=== PATIENT | female | born 2000 | race Caucasian/White ===

== ENCOUNTER 2020-09-04 13:39 | Day surgery (SDC) | payer OTHER ==
[2020-09-04] MEDS ORDERED: Sodium Chloride 0.9% 2.5 ML Syringe FLUSH PRN ×2 (13:59→18:23)
--- NOTE | 2020-09-04 14:02 | EDM.PDOC ---
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 Onset was 2 AM. It was immediately following sexual intercourse. Since then the pain is continued but is gradually gotten a little better. It is associated with nausea but not with fever or change in bowel or bladder habits. She has no vaginal discharge. Her last menstrual period was probably a little more than a month ago and she thinks is probably late but she is not sure. History of present illness: [] Review of systems: As per history of present illness and below otherwise all systems reviewed and negative. Past medical history: As per history of present illness and as reviewed below otherwise noncontributory. Surgical history: As per history of present illness and as reviewed below otherwise noncontributory. Social history: No reported history of drug or alcohol abuse. Family history: As per history of present illness and as reviewed below otherwise noncontributory. Physical exam: Constitutional - well developed, well-nourished and in no acute distress HEENT - normocephalic, no evidence of trauma - external nose and mouth normal - no mass in neck and no JVD - mucosae moist EYES - full EOM, PERRL, no icterus - no evidence of inflammation, injection, or drainage Respiratory - no respiratory distress, equal bilateral expansion, lungs clear to auscultation and no abnormal lung sounds Cardiovascular - Regular Rhythm with S1 and S2 appreciated and no murmur, gallop or rub. GI - abdomen soft without distension or organomegaly - normal bowel sounds - no guard or rebound BUT tender in the hypogastrium on both sides and in the midline and suprapubic area. -exams were done with consent with inside barrel lathe operator, Neena Rogel, at the bedside. Yellow discharge is present in the external genitalia otherwise external genitalia is negative for any rashes lesions or other abnormalities. Yellow discharge is noted in the vaginal vault and consistent with discharge from the cervical os. Cervical os is erythematous but consistent in in color without any speckling. Moderate cervical motion tenderness is present with chandelier sign. No masses or tenderness appreciated in bilateral adnexa. IUD strings are present upon examination of the cervix. Musculoskeletal no gross deformity of long bones or joints - no tenderness, swelling or edema Neurologic - Alert and oriented times four - CN II-XII grossly intact - motor sensory and coordination symmetrically normal Psychiatric - appropriate mood and affect with normal thought content Hematologic - No petechiae or purpura - mucosa appropriate color and sclera not pale - normal nail bed color and refill Integument - no rash or evidence of trauma - normal turgor Diagnostics: [Gonorrhea, chlamydia, trichomonas, transvaginal ultrasound, speculum exam, bimanual exam] Therapeutics: [Normal saline, ceftriaxone IV, Toradol] Impression: [] Plan: [] Definitive disposition and diagnosis as appropriate pending reevaluation and review of above. Abdomen Pain Score (Numeric/FACES): 8 - Related Data Allergies Allergy/AdvReac Type Severity Reaction Status Date / Time No Known Allergies Allergy Verified 09/04/20 14:05 Home Meds: Home Meds Doxycycline [Vibramycin] 100 mg PO BID 10 Days #20 tab 09/04/20 [Rx] Past Medical History - Past Health History Medical/Surgical History: Denies Medical/Surgical History ED ROS GENERAL - Review of Systems Review Of Systems: Comprehensive ROS is negative, except as noted in HPI. ED EXAM, GENERAL - Physical Exam Exam: See Below Free Text/Narrative:: My physical exam is in the HPI Course - Vital Signs Text/Narrative:: 1817 hrs. with the patient and felt that torsion cannot be ruled out without taken the patient to the operating room. Arrangements being made for same. Last Recorded V/S: 1631 hrs. the case was discussed with radiology who called to say she had no flow to the right ovary and a small cyst. There was fluid around the right ovary. Discussed the case with Dr. Jiménez to see the patient. She is n.p.o. since last night with onset of pain at 2 AM. Departure - Departure Time of Disposition: 18:18 Disposition: Still A Patient 30 Condition: Good Clinical Impression: Ovarian cyst, Torsion of right ovary - Discharge Information <Alycia Jiménez - Last Filed: 09/04/20 20:31> ED HPI GENERAL MEDICAL PROBLEM - History of Present Illness INITIAL COMMENTS - FREE TEXT/NARRATIVE: HPI by Dr Dhaliwal , See previous Document for H & P Course - Vital Signs Last Recorded V/S: Last Vital Signs Temp 36.8 C 09/04/20 20:24 Pulse 90 09/04/20 20:24 Resp 12 09/04/20 20:24 BP 144/96 H 09/04/20 20:24 Pulse Ox 100 09/04/20 20:24 - Orders/Labs/Meds Orders: Active Orders 24 hr Category Date Time Status Admission Status [Patient Status] [ADT] Stat ADT 09/04/20 18:16 Active Patient Status [ADT] Routine ADT 09/04/20 18:23 Active Consult to Physician [CONS] Stat Cons 09/04/20 17:30 Active CHLAMYDIA AND GONORRHEA BY TMA Stat Lab 09/04/20 16:00 Received Sodium Chloride 0.9% [Normal Saline] Med 09/04/20 18:23 Active 10 ml IV ASDIRECTED PRN Sodium Chloride 0.9% [Saline Flush] Med 09/04/20 18:23 Active 10 ml FLUSH ASDIRECTED PRN Sodium Chloride 0.9% [Saline Flush] Med 09/04/20 18:23 Active 2.5 ml FLUSH ASDIRECTED PRN fentaNYL [Sublimaze] Med 09/04/20 19:59 Active 50 mcg IVPUSH Q5M PRN Peripheral IV Insertion Adult [OM.PC] Urgent Oth 09/04/20 18:23 Ordered Saline Lock Insert [OM.PC] Stat Oth 09/04/20 13:59 Ordered Sequential Compression Device [OM.PC] Per Unit Routine Oth 09/04/20 18:23 Ordered Labs: Laboratory Tests 09/04/20 09/04/20 09/04/20 Range/Units 14:10 14:20 14:20 WBC (4.0-11.0) K/uL RBC (4.30-5.90) M/uL Hgb (12.0-16.0) g/dL Hct (36.0-46.0) % MCV (80.0-98.0) fL MCH (27.0-32.0) pg MCHC (31.0-37.0) g/dL RDW Std Deviation (28.0-62.0) fl RDW Coeff of Shalonda (11.0-15.0) % Plt Count (150-400) K/uL MPV (7.40-12.00) fL Neut % (Auto) (48.0-80.0) % Lymph % (Auto) (16.0-40.0) % [place] % (Auto) (0.0-15.0) % Eos % (Auto) (0.0-7.0) % Baso % (Auto) (0.0-1.5) % Neut # (Auto) (1.4-5.7) K/uL Lymph # (Auto) (0.6-2.4) K/uL [place] # (Auto) (0.0-0.8) K/uL Eos # (Auto) (0.0-0.7) K/uL Baso # (Auto) (0.0-0.1) K/uL Nucleated RBC % /100WBC Nucleated RBCs # K/uL Sodium (136-145) mmol/L Potassium (3.5-5.1) mmol/L Chloride (98-107) mmol/L Carbon Dioxide (21.0-32.0) mmol/L BUN (7.0-18.0) mg/dL Creatinine (0.6-1.0) mg/dL Est Cr Clr Drug Dosing mL/min Estimated GFR (MDRD) ml/min Glucose (74-106) mg/dL Calcium (8.5-10.1) mg/dL Total Bilirubin (0.2-1.0) mg/dL AST (15-37) IU/L ALT (14-63) IU/L Alkaline Phosphatase (46-116) U/L Total Protein (6.4-8.2) g/dL Albumin (3.4-5.0) g/dL Globulin (2.6-4.0) g/dL Albumin/Globulin Ratio (0.9-1.6) Lipase (73-393) U/L Urine Color YELLOW Urine Appearance SLT CLOUDY Urine pH 7.0 (5.0-8.0) Ur Specific Mall[place] 1.015 (1.001-1.035) Urine Protein NEGATIVE (NEGATIVE) mg/dL Urine Glucose (UA) NEGATIVE (NEGATIVE) mg/dL Urine Ketones NEGATIVE (NEGATIVE) mg/dL Urine Occult Blood NEGATIVE (NEGATIVE) Urine Nitrite POSITIVE H (NEGATIVE) Urine Bilirubin NEGATIVE (NEGATIVE) Urine Urobilinogen 0.2 (<2.0) EU/dL Ur Leukocyte Esterase TRACE H (NEGATIVE) Urine RBC 0-1 (0-2/HPF) Urine WBC 0-2 (0-5/HPF) Ur Epithelial Cells RARE (NONE-FEW) Urine Bacteria 1+ H (NEGATIVE) Urine HCG, Qual NEGATIVE (NEGATIVE) Jannet species DNA (NEGATIVE) Gardnerella DNA Probe (NEGATIVE) SARS-CoV-2 RNA (FRANKIE) NEGATIVE (NEGATIVE) Trichomonas DNA Probe (NEGATIVE) 09/04/20 09/04/20 09/04/20 Range/Units 15:05 15:05 16:00 WBC 9.49 (4.0-11.0) K/uL RBC 4.78 (4.30-5.90) M/uL Hgb 14.6 (12.0-16.0) g/dL Hct 42.6 (36.0-46.0) % MCV 89.1 (80.0-98.0) fL MCH 30.5 (27.0-32.0) pg MCHC 34.3 (31.0-37.0) g/dL RDW Std Deviation 39.5 (28.0-62.0) fl RDW Coeff of Shalonda 12 (11.0-15.0) % Plt Count 269 (150-400) K/uL MPV 10.10 (7.40-12.00) fL Neut % (Auto) 70.4 (48.0-80.0) % Lymph % (Auto) 22.4 (16.0-40.0) % [place] % (Auto) 5.9 (0.0-15.0) % Eos % (Auto) 1.2 (0.0-7.0) % Baso % (Auto) 0.1 (0.0-1.5) % Neut # (Auto) 6.7 H (1.4-5.7) K/uL Lymph # (Auto) 2.1 (0.6-2.4) K/uL [place] # (Auto) 0.6 (0.0-0.8) K/uL Eos # (Auto) 0.1 (0.0-0.7) K/uL Baso # (Auto) 0.0 (0.0-0.1) K/uL Nucleated RBC % 0.0 /100WBC Nucleated RBCs # 0 K/uL Sodium 142 (136-145) mmol/L Potassium 3.8 (3.5-5.1) mmol/L Chloride 106 (98-107) mmol/L Carbon Dioxide 23.4 (21.0-32.0) mmol/L BUN 7 (7.0-18.0) mg/dL Creatinine 0.8 (0.6-1.0) mg/dL Est Cr Clr Drug Dosing 119.28 mL/min Estimated GFR (MDRD) > 60.0 ml/min Glucose 92 (74-106) mg/dL Calcium 8.2 L (8.5-10.1) mg/dL Total Bilirubin 0.7 (0.2-1.0) mg/dL AST 15 (15-37) IU/L ALT 25 (14-63) IU/L Alkaline Phosphatase 67 (46-116) U/L Total Protein 7.5 (6.4-8.2) g/dL Albumin 3.8 (3.4-5.0) g/dL Globulin 3.7 (2.6-4.0) g/dL Albumin/Globulin Ratio 1.0 (0.9-1.6) Lipase 88 (73-393) U/L Urine Color Urine Appearance Urine pH (5.0-8.0) Ur Specific Mallie (1.001-1.035) Urine Protein (NEGATIVE) mg/dL Urine Glucose (UA) (NEGATIVE) mg/dL Urine Ketones (NEGATIVE) mg/dL Urine Occult Blood (NEGATIVE) Urine Nitrite (NEGATIVE) Urine Bilirubin (NEGATIVE) Urine Urobilinogen (<2.0) EU/dL Ur Leukocyte Esterase (NEGATIVE) Urine RBC (0-2/HPF) Urine WBC (0-5/HPF) Ur Epithelial Cells (NONE-FEW) Urine Bacteria (NEGATIVE) Urine HCG, Qual (NEGATIVE) Jannet species DNA NEGATIVE (NEGATIVE) Gardnerella DNA Probe NEGATIVE (NEGATIVE) SARS-CoV-2 RNA (FRANKIE) (NEGATIVE) Trichomonas DNA Probe NEGATIVE (NEGATIVE) Sepsis Event Note (ED) - Focused Exam Vital Signs: Vital Signs Temp Pulse Resp BP Pulse Ox 09/04/20 20:24 36.8 C 90 12 144/96 H 100 09/04/20 19:14 80 18 125/76 97 09/04/20 18:08 84 18 96 09/04/20 16:28 37.2 C 83 18 133/77 98 09/04/20 13:57 36.1 C 101 H 18 124/79 96 - Problem List & Annotations (1) Ovarian cyst SNOMED Code(s): 55338310 Code(s): N83.209 - UNSPECIFIED OVARIAN CYST, UNSPECIFIED SIDE Status: Acute Current Visit: Yes - My Orders Last 24 Hours: My Active Orders 09/04/20 18:23 Patient Status [ADT] Routine Sodium Chloride 0.9% [Normal Saline] 10 ml IV ASDIRECTED PRN Sodium Chloride 0.9% [Saline Flush] 10 ml FLUSH ASDIRECTED PRN Sodium Chloride 0.9% [Saline Flush] 2.5 ml FLUSH ASDIRECTED PRN Peripheral IV Insertion Adult [OM.PC] Urgent Sequential Compression Device [OM.PC] Per Unit Routine - Assessment/Plan Last 24 Hours: My Active Orders 09/04/20 18:23 Patient Status [ADT] Routine Sodium Chloride 0.9% [Normal Saline] 10 ml IV ASDIRECTED PRN Sodium Chloride 0.9% [Saline Flush] 10 ml FLUSH ASDIRECTED PRN Sodium Chloride 0.9% [Saline Flush] 2.5 ml FLUSH ASDIRECTED PRN Peripheral IV Insertion Adult [OM.PC] Urgent Sequential Compression Device [OM.PC] Per Unit Routine
[2020-09-04] MEDS ORDERED: Ketorolac 30 MG/ML SDV IVPUSH ONE ×2 (14:37→20:33)
[2020-09-04] MEDS: Sodium Chloride 0.9% 10 ML Syringe FLUSH PRN ×2 (15:01→17:03)
--- NOTE | 2020-09-04 15:24 | CR ---
INDICATION: Abdominal pain. Misplaced IUD. COMPARISON: None available. FINDINGS: AP supine examination of the abdomen and pelvis was performed. A T-shaped intrauterine device is in apparently satisfactory position located just to the right of midline in the mid pelvis, in a position consistent with the superior uterine fundus. An umbilical piercing is seen. The bowel gas pattern is unremarkable with nothing seen to suggest obstruction or ileus. There is no sign of dilatation of the small bowel or colon. There is no free air. Soft tissue planes are preserved and there is no sign of a mass. No calcifications of concern are identified. There is mild scoliosis of the lumbar spine convex towards the left. The lung bases are not included on today`s study. IMPRESSION: Apparently satisfactory positioning of a T-shaped intrauterine device just to the right of midline in the mid pelvis. No sign of obstruction or ileus. Mild scoliosis of the lumbar spine convex towards the left. Dictated by Jose Christianson MD @ Sep 04 2020 3:21PM Signed by Dr. Jose Christianson @ Sep 04 2020 3:24PM
[2020-09-04 15:37] LABS: BLOOD UREA NITROGEN,BUN 7 mg/dL (7.0-18.0); CARBON DIOXIDE,CO2 23.4 mmol/L (21.0-32.0); CHLORIDE,CL 106 mmol/L (98-107); GLUCOSE RANDOM 92 mg/dL (74-106); LIPASE 88 U/L (73-393); POTASSIUM,K 3.8 mmol/L (3.5-5.1); SODIUM,NA 142 mmol/L (136-145)
[2020-09-04] MEDS ORDERED: cefTRIAXone 250 MG in Lidocaine 1% 0.9 ML IV ONE (15:56)
--- NOTE | 2020-09-04 16:30 | US ---
INDICATION: Right pelvic pain. History of IUD placed 05/2019 COMPARISON: None available. FINDINGS: Transvaginal ultrasound examination of the female pelvis was performed. The uterus is anteverted with no evidence of mass. It measures 7.6 x 3.2 x 3.0 cm. The endometrial lining is normal in thickness at 3 mm. There is a tiny amount of fluid in the cervix, nonspecific. There is satisfactory positioning of a T-shaped intrauterine device in the superior uterine fundus. The right ovary has a slightly irregularly-shaped otherwise simple cyst measuring 2.2 x 1.0 x 1.9 centimeters consistent with a collapsing cyst. Normal appearing follicular cysts are seen in both ovaries. The ovaries are normal in size with the right larger than the left, the right measuring 4.1 x 3.4 x 2.3 cm and the left measuring 7.2 x 2.9 x 1.6 cm. Color and pulse Doppler flow cannot be identified in the right ovary, worrisome for ovarian torsion. There is normal color and pulse doppler flow in the left ovary. There is a mild amount of free fluid in the cul-de-sac and around both ovaries, right greater than left, nonspecific. This is more than the typical physiologic free fluid. I discussed the findings with Dr. Cunningham at 1626 hours on 09/04/2020. IMPRESSION: Absence of flow in the right ovary, findings worrisome for ovarian torsion. Slightly irregularly-shaped otherwise simple cyst in the right ovary measuring up to 2.2 centimeters in diameter. Mild amount of free fluid in the pelvis, more than the typical physiologic fluid, slightly more prominent around the right ovary than elsewhere. Satisfactory position of a T-shaped intrauterine device in the superior uterine fundus. Dictated by Jose Christianson MD @ Sep 04 2020 4:18PM Signed by Dr. Jose Christianson @ Sep 04 2020 4:29PM
[2020-09-04] MEDS ORDERED: cefTRIAXone 1 GM Vial IVPUSH ONE (16:40)
--- NOTE | 2020-09-04 18:20 | EDM.PDOC ---
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 Patient states pain started ye sterday around midnight when she was having sex. she states pain is getting worse . She has mirena in place ( placed in May 2019). She denies any hx of STD . Pain is in the pelvic region. she denies any nausea , vomiting , fever , vaginal bleeding LMP 1 month ago, she has irregular periods with mirena PMH: Nil PSH: NIl OBGYN hx: nil , has mirena FSH: Drink occasionally and vapes Allergy: NIL Exam: General: Stable, in Mild painful distress Chest: CTA BL CVS: S1 S2 no murmur Abdomen: Flat , non - distended , mild tenderness in the lower abdomen, no rebound or guarding Pelvic: Normal appearing external genitalia, speculum - normal cervix , no discharge Bimanual - normal sized anteverted uterus , tender , no adnexal masses , tender adnexa VSS: 133/77 , HR; 95 CBC: 9 < 14/42> 269 UA - nitrites . USS: Normal uterus, right ovary with no color doppler flow , normal left ovary A/P 20yo P0 with acute pelvic pain secondary to ruptured ovarian cyst R/O ovarian torsion UTI Plan Patient informed with her mother that her pain is most likely due to an ovarian cyst rupture less likely ovarian torsion Informed her that most likely she does not have a torsed ovary based on size , however this cannot be completely ruled out I gave her option for observation and pain management vs Diagnostic Laparoscopy Patient will prefer diagnostic laparoscopy. patient given opportunity to ask questions and all questions answered. OR informed Anaesthesia informed Abdomen Pain Score (Numeric/FACES): 8 - Related Data Allergies Allergy/AdvReac Type Severity Reaction Status Date / Time No Known Allergies Allergy Verified 09/04/20 14:05 Home Meds: Home Meds Doxycycline [Vibramycin] 100 mg PO BID 10 Days #20 tab 09/04/20 [Rx] Past Medical History - Past Health History Medical/Surgical History: Denies Medical/Surgical History Social & Family History - Family History Family Medical History: Unobtainable ED ROS GENERAL - Review of Systems Review Of Systems: See Below (hpi) ED EXAM, GI/ABD - Physical Exam Exam: See Below Course - Vital Signs Last Recorded V/S: Last Vital Signs Temp 37.2 C 09/04/20 16:28 Pulse 83 09/04/20 16:28 Resp 18 09/04/20 16:28 BP 133/77 09/04/20 16:28 Pulse Ox 98 09/04/20 16:28 - Orders/Labs/Meds Orders: Active Orders 24 hr Category Date Time Status Notify Provider Consults [RC] ASDIRECTED Care 09/04/20 17:31 Active Consult to Physician [CONS] Stat Cons 09/04/20 17:30 Active CHLAMYDIA AND GONORRHEA BY [facility] Stat Lab 09/04/20 16:00 Received CORONAVIRUS COVID-19 FRANKIE [MOLEC] Stat Lab 09/04/20 14:10 Received Sodium Chloride 0.9% [Saline Flush] Med 09/04/20 13:59 Active 10 ml FLUSH ASDIRECTED PRN Sodium Chloride 0.9% [Saline Flush] Med 09/04/20 13:59 Active 2.5 ml FLUSH ASDIRECTED PRN Saline Lock Insert [OM.PC] Stat Oth 09/04/20 13:59 Ordered Labs: Laboratory Tests 09/04/20 09/04/20 09/04/20 Range/Units 14:20 14:20 15:05 WBC 9.49 (4.0-11.0) K/uL RBC 4.78 (4.30-5.90) M/uL Hgb 14.6 (12.0-16.0) g/dL Hct 42.6 (36.0-46.0) % MCV 89.1 (80.0-98.0) fL MCH 30.5 (27.0-32.0) pg MCHC 34.3 (31.0-37.0) g/dL RDW Std Deviation 39.5 (28.0-62.0) fl RDW Coeff of Shalonda 12 (11.0-15.0) % Plt Count 269 (150-400) K/uL MPV 10.10 (7.40-12.00) fL Neut % (Auto) 70.4 (48.0-80.0) % Lymph % (Auto) 22.4 (16.0-40.0) % [place] % (Auto) 5.9 (0.0-15.0) % Eos % (Auto) 1.2 (0.0-7.0) % Baso % (Auto) 0.1 (0.0-1.5) % Neut # (Auto) 6.7 H (1.4-5.7) K/uL Lymph # (Auto) 2.1 (0.6-2.4) K/uL [place] # (Auto) 0.6 (0.0-0.8) K/uL Eos # (Auto) 0.1 (0.0-0.7) K/uL Baso # (Auto) 0.0 (0.0-0.1) K/uL Nucleated RBC % 0.0 /100WBC Nucleated RBCs # 0 K/uL Sodium (136-145) mmol/L Potassium (3.5-5.1) mmol/L Chloride (98-107) mmol/L Carbon Dioxide (21.0-32.0) mmol/L BUN (7.0-18.0) mg/dL Creatinine (0.6-1.0) mg/dL Est Cr Clr Drug Dosing mL/min Estimated GFR (MDRD) ml/min Glucose (74-106) mg/dL Calcium (8.5-10.1) mg/dL Total Bilirubin (0.2-1.0) mg/dL AST (15-37) IU/L ALT (14-63) IU/L Alkaline Phosphatase (46-116) U/L Total Protein (6.4-8.2) g/dL Albumin (3.4-5.0) g/dL Globulin (2.6-4.0) g/dL Albumin/Globulin Ratio (0.9-1.6) Lipase (73-393) U/L Urine Color YELLOW Urine Appearance SLT CLOUDY Urine pH 7.0 (5.0-8.0) Ur Specific [place] 1.015 (1.001-1.035) Urine Protein NEGATIVE (NEGATIVE) mg/dL Urine Glucose (UA) NEGATIVE (NEGATIVE) mg/dL Urine Ketones NEGATIVE (NEGATIVE) mg/dL Urine Occult Blood NEGATIVE (NEGATIVE) Urine Nitrite POSITIVE H (NEGATIVE) Urine Bilirubin NEGATIVE (NEGATIVE) Urine Urobilinogen 0.2 (<2.0) EU/dL Ur Leukocyte Esterase TRACE H (NEGATIVE) Urine RBC 0-1 (0-2/HPF) Urine WBC 0-2 (0-5/HPF) Ur Epithelial Cells RARE (NONE-FEW) Urine Bacteria 1+ H (NEGATIVE) Urine HCG, Qual NEGATIVE (NEGATIVE) Jannet species DNA (NEGATIVE) Gardnerella DNA Probe (NEGATIVE) Trichomonas DNA Probe (NEGATIVE) 09/04/20 09/04/20 Range/Units 15:05 16:00 WBC (4.0-11.0) K/uL RBC (4.30-5.90) M/uL Hgb (12.0-16.0) g/dL Hct (36.0-46.0) % MCV (80.0-98.0) fL MCH (27.0-32.0) pg MCHC (31.0-37.0) g/dL RDW Std Deviation (28.0-62.0) fl RDW Coeff of Shalonda (11.0-15.0) % Plt Count (150-400) K/uL MPV (7.40-12.00) fL Neut % (Auto) (48.0-80.0) % Lymph % (Auto) (16.0-40.0) % [place] % (Auto) (0.0-15.0) % Eos % (Auto) (0.0-7.0) % Baso % (Auto) (0.0-1.5) % Neut # (Auto) (1.4-5.7) K/uL Lymph # (Auto) (0.6-2.4) K/uL [place] # (Auto) (0.0-0.8) K/uL Eos # (Auto) (0.0-0.7) K/uL Baso # (Auto) (0.0-0.1) K/uL Nucleated RBC % /100WBC Nucleated RBCs # K/uL Sodium 142 (136-145) mmol/L Potassium 3.8 (3.5-5.1) mmol/L Chloride 106 (98-107) mmol/L Carbon Dioxide 23.4 (21.0-32.0) mmol/L BUN 7 (7.0-18.0) mg/dL Creatinine 0.8 (0.6-1.0) mg/dL Est Cr Clr Drug Dosing 119.28 mL/min Estimated GFR (MDRD) > 60.0 ml/min Glucose 92 (74-106) mg/dL Calcium 8.2 L (8.5-10.1) mg/dL Total Bilirubin 0.7 (0.2-1.0) mg/dL AST 15 (15-37) IU/L ALT 25 (14-63) IU/L Alkaline Phosphatase 67 (46-116) U/L Total Protein 7.5 (6.4-8.2) g/dL Albumin 3.8 (3.4-5.0) g/dL Globulin 3.7 (2.6-4.0) g/dL Albumin/Globulin Ratio 1.0 (0.9-1.6) Lipase 88 (73-393) U/L Urine Color Urine Appearance Urine pH (5.0-8.0) Ur Specific [place] (1.001-1.035) Urine Protein (NEGATIVE) mg/dL Urine Glucose (UA) (NEGATIVE) mg/dL Urine Ketones (NEGATIVE) mg/dL Urine Occult Blood (NEGATIVE) Urine Nitrite (NEGATIVE) Urine Bilirubin (NEGATIVE) Urine Urobilinogen (<2.0) EU/dL Ur Leukocyte Esterase (NEGATIVE) Urine RBC (0-2/HPF) Urine WBC (0-5/HPF) Ur Epithelial Cells (NONE-FEW) Urine Bacteria (NEGATIVE) Urine HCG, Qual (NEGATIVE) Jannet species DNA NEGATIVE (NEGATIVE) Gardnerella DNA Probe NEGATIVE (NEGATIVE) Trichomonas DNA Probe NEGATIVE (NEGATIVE) Departure - Departure Time of Disposition: 18:25 Disposition: Still A Patient 30 Clinical Impression: Ovarian cyst - Discharge Information *PRESCRIPTION DRUG MONITORING PROGRAM REVIEWED*: No *COPY OF PRESCRIPTION DRUG MONITORING REPORT IN PATIENT KIRA: No Prescriptions: Doxycycline [Vibramycin] 100 mg PO BID 10 Days #20 tab Referrals: PCP,None [Ordering Only Provider] - Forms: ED Department Discharge Sepsis Event Note (ED) - Evaluation Sepsis Screening Result: No Definite Risk - Focused Exam Vital Signs: Vital Signs Temp Pulse Resp BP Pulse Ox 09/04/20 16:28 37.2 C 83 18 133/77 98 09/04/20 13:57 36.1 C 101 H 18 124/79 96 - Problem List & Annotations (1) Ruptured cyst of ovary SNOMED Code(s): 16843988 Code(s): N83.209 - UNSPECIFIED OVARIAN CYST, UNSPECIFIED SIDE Status: Acute Current Visit: Yes - Problem List Review Problem List Initiated/Reviewed/Updated: Yes
[2020-09-04] MEDS ORDERED: Sodium Chloride 0.9% 10 ML Syringe FLUSH PRN (18:23)
[2020-09-04] MEDS ORDERED: Sodium Chloride 0.9% 10 ML SDV IV PRN (18:23)
[2020-09-04] MEDS ORDERED: fentaNYL 250 MCG/5 ML SDV ONE (18:48)
[2020-09-04] MEDS ORDERED: Midazolam 1 MG/ML 2 ML SDV ONE (18:48)
[2020-09-04] MEDS ORDERED: Propofol 200 MG/20 ML SDV ONE (18:48)
[2020-09-04] MEDS ORDERED: Glycopyrrolate 0.2 MG/ML SDV ONE ×2 (18:49→20:06)
[2020-09-04] MEDS ORDERED: Succinylcholine/Sod PF 100 MG/5 ML SYRINGE IV ONE (18:50)
[2020-09-04] MEDS ORDERED: Rocuronium Bromide 50 MG/5 ML Syringe ONE (18:50)
[2020-09-04] MEDS ORDERED: Ondansetron 4 MG/2 ML SDV ONE (18:50)
[2020-09-04] MEDS ORDERED: Dexamethasone 4 MG/ML 5 ML MDV ONE (18:50)
[2020-09-04] MEDS ORDERED: Bupivacaine 0.25% 10 ML SDV ONE (18:54)
[2020-09-04] MEDS ORDERED: Octyl 2-Cyanoacrylate 1 Tube ONE (18:54)
--- NOTE | 2020-09-04 19:01 | PCM.PREANE ---
Preanesthetic Assessment - Anesthesia/Transfusion/Family Hx Anesthesia History: No Prior Anesthesia Family History of Anesthesia Reaction: No Transfusion History: No Prior Transfusion(s) - Review of Systems General: No Symptoms Pulmonary: No Symptoms Cardiovascular: No Symptoms Gastrointestinal: No Symptoms, Abdominal Pain (severe pelvic pain) Neurological: No Symptoms Other: Reports: None - Physical Assessment NPO Status Date: 09/04/20 NPO Status Time: 10:00 (powerade) Vital Signs: Last Vital Signs Temp 37.2 C 09/04/20 16:28 Pulse 84 09/04/20 18:08 Resp 18 09/04/20 18:08 BP 133/77 09/04/20 16:28 Pulse Ox 96 09/04/20 18:08 Height: 1.78 m Weight: 81.647 kg ASA Class: 2E Mental Status: Alert & Oriented x3 Dentition: Reports: Normal Dentition, Broken Tooth/Teeth (chipped teeth back right top) ROM/Head Extension: Full Lungs: Clear to Auscultation, Normal Respiratory Effort Cardiovascular: Regular Rate, Regular Rhythm - Lab Values: Laboratory Last Values WBC 9.49 K/uL (4.0-11.0) 09/04/20 15:05 RBC 4.78 M/uL (4.30-5.90) 09/04/20 15:05 Hgb 14.6 g/dL (12.0-16.0) 09/04/20 15:05 Hct 42.6 % (36.0-46.0) 09/04/20 15:05 MCV 89.1 fL (80.0-98.0) 09/04/20 15:05 MCH 30.5 pg (27.0-32.0) 09/04/20 15:05 MCHC 34.3 g/dL (31.0-37.0) 09/04/20 15:05 RDW Std Deviation 39.5 fl (28.0-62.0) 09/04/20 15:05 RDW Coeff of Shalonda 12 % (11.0-15.0) 09/04/20 15:05 Plt Count 269 K/uL (150-400) 09/04/20 15:05 MPV 10.10 fL (7.40-12.00) 09/04/20 15:05 Neut % (Auto) 70.4 % (48.0-80.0) 09/04/20 15:05 Lymph % (Auto) 22.4 % (16.0-40.0) 09/04/20 15:05 Barber % (Auto) 5.9 % (0.0-15.0) 09/04/20 15:05 Eos % (Auto) 1.2 % (0.0-7.0) 09/04/20 15:05 Baso % (Auto) 0.1 % (0.0-1.5) 09/04/20 15:05 Neut # (Auto) 6.7 K/uL (1.4-5.7) H 09/04/20 15:05 Lymph # (Auto) 2.1 K/uL (0.6-2.4) 09/04/20 15:05 Barber # (Auto) 0.6 K/uL (0.0-0.8) 09/04/20 15:05 Eos # (Auto) 0.1 K/uL (0.0-0.7) 09/04/20 15:05 Baso # (Auto) 0.0 K/uL (0.0-0.1) 09/04/20 15:05 Nucleated RBC % 0.0 /100WBC 09/04/20 15:05 Nucleated RBCs # 0 K/uL 09/04/20 15:05 Sodium 142 mmol/L (136-145) 09/04/20 15:05 Potassium 3.8 mmol/L (3.5-5.1) 09/04/20 15:05 Chloride 106 mmol/L (98-107) 09/04/20 15:05 Carbon Dioxide 23.4 mmol/L (21.0-32.0) 09/04/20 15:05 BUN 7 mg/dL (7.0-18.0) 09/04/20 15:05 Creatinine 0.8 mg/dL (0.6-1.0) 09/04/20 15:05 Est Cr Clr Drug Dosing 119.28 mL/min 09/04/20 15:05 Estimated GFR (MDRD) > 60.0 ml/min 09/04/20 15:05 Glucose 92 mg/dL (74-106) 09/04/20 15:05 Calcium 8.2 mg/dL (8.5-10.1) L 09/04/20 15:05 Total Bilirubin 0.7 mg/dL (0.2-1.0) 09/04/20 15:05 AST 15 IU/L (15-37) 09/04/20 15:05 ALT 25 IU/L (14-63) 09/04/20 15:05 Alkaline Phosphatase 67 U/L (46-116) 09/04/20 15:05 Total Protein 7.5 g/dL (6.4-8.2) 09/04/20 15:05 Albumin 3.8 g/dL (3.4-5.0) 09/04/20 15:05 Globulin 3.7 g/dL (2.6-4.0) 09/04/20 15:05 Albumin/Globulin Ratio 1.0 (0.9-1.6) 09/04/20 15:05 Lipase 88 U/L (73-393) 09/04/20 15:05 Urine Color YELLOW 09/04/20 14:20 Urine Appearance SLT CLOUDY 09/04/20 14:20 Urine pH 7.0 (5.0-8.0) 09/04/20 14:20 Ur Specific [place] 1.015 (1.001-1.035) 09/04/20 14:20 Urine Protein NEGATIVE mg/dL (NEGATIVE) 09/04/20 14:20 Urine Glucose (UA) NEGATIVE mg/dL (NEGATIVE) 09/04/20 14:20 Urine Ketones NEGATIVE mg/dL (NEGATIVE) 09/04/20 14:20 Urine Occult Blood NEGATIVE (NEGATIVE) 09/04/20 14:20 Urine Nitrite POSITIVE (NEGATIVE) H 09/04/20 14:20 Urine Bilirubin NEGATIVE (NEGATIVE) 09/04/20 14:20 Urine Urobilinogen 0.2 EU/dL (<2.0) 09/04/20 14:20 Ur Leukocyte Esterase TRACE (NEGATIVE) H 09/04/20 14:20 Urine RBC 0-1 (0-2/HPF) 09/04/20 14:20 Urine WBC 0-2 (0-5/HPF) 09/04/20 14:20 Ur Epithelial Cells RARE (NONE-FEW) 09/04/20 14:20 Urine Bacteria 1+ (NEGATIVE) H 09/04/20 14:20 Urine HCG, Qual NEGATIVE (NEGATIVE) 09/04/20 14:20 Jannet species DNA NEGATIVE (NEGATIVE) 09/04/20 16:00 Gardnerella DNA Probe NEGATIVE (NEGATIVE) 09/04/20 16:00 SARS-CoV-2 RNA (FRANKIE) NEGATIVE (NEGATIVE) 09/04/20 14:10 Trichomonas DNA Probe NEGATIVE (NEGATIVE) 09/04/20 16:00 - Allergies Allergies/Adverse Reactions: Allergies Allergy/AdvReac Type Severity Reaction Status Date / Time No Known Allergies Allergy Verified 09/04/20 14:05 - Blood Blood Available: No - Anesthesia Plan Free Text/Narrative:: ett - Acknowledgements Anesthesia Type Planned: General Anesthesia Pt an Appropriate Candidate for the Planned Anesthesia: Yes Alternatives and Risks of Anesthesia Discussed w Pt/Guardian: Yes Pt/Guardian Understands and Agrees with Anesthesia Plan: Yes Additional Comments: Patient has multiple piercings. She took out belly ring and tongue ring for me. States she will not remove nipple rings. Nose rings she will work on. PreAnesthesia Questionnaire - Past Health History Medical/Surgical History: Denies Medical/Surgical History - SUBSTANCE USE Tobacco Use Within Last Twelve Months: No - HOME MEDS Home Medications: Home Meds Doxycycline [Vibramycin] 100 mg PO BID 10 Days #20 tab 09/04/20 [Rx]
[2020-09-04] MEDS ORDERED: fentaNYL 100 MCG/2 ML SDV IVPUSH PRN (19:59)
[2020-09-04] MEDS ORDERED: Morphine 4 MG/ML Syringe IVPUSH PRN (20:33)
[2020-09-04] MEDS ORDERED: Promethazine 25 MG/ML SDV IM PRN (20:33)
[2020-09-04] MEDS ORDERED: Ondansetron 4 MG/2 ML SDV IVPUSH PRN (20:33)
[2020-09-04] MEDS ORDERED: Acetaminophen/oxyCODONE 325-5 MG Tab PO PRN ×2 (20:33)
--- NOTE | 2020-09-04 20:38 | PCM.OPNOTE ---
- General Post-Op/Procedure Note Date of Surgery/Procedure: 09/04/20 Operative Procedure(s): Diagnostic Laparoscopy. Aspiration of peritoneal fluid Findings: EUA showed Normal sized anteverted uterus Laparoscopy showed Normal appearing uterus , tubes and ovaries Scant serous peritoneal fluid Pre Op Diagnosis: Ruptured ovarian cyst. r/o ovarian torsion Post-Op Diagnosis: Ruptured ovarian cyst Primary Surgeon: Alycia Jiménez Anesthesia Provider: Melony Falcon Pathology: none Fluid Replacement, Intraop: 900 EBL in mLs: 5 Complications: None Condition: Fair Free Text/Narrative:: Intake & Output 09/04/20 09/04/20 09/04/20 06:59 14:59 22:59 Output Total 100 Balance -100
--- NOTE | 2020-09-04 20:43 | PCM.POSTAN ---
POST ANESTHESIA ASSESSMENT - MENTAL STATUS Mental Status: Alert, Oriented - VITAL SIGNS Vital Signs: Last Vital Signs Temp 36.8 C 09/04/20 20:24 Pulse 66 09/04/20 20:35 Resp 16 09/04/20 20:35 BP 122/64 09/04/20 20:35 Pulse Ox 100 09/04/20 20:35 - RESPIRATORY Respiratory Status: Respiratory Rate WNL, Airway Patent, O2 Saturation Stable - CARDIOVASCULAR CV Status: Pulse Rate WNL, Blood Pressure Stable - GASTROINTESTINAL GI Status: No Symptoms - POST OP HYDRATION Hydration Status: Adequate & Stable
[2020-09-05] MEDS ORDERED: Ketorolac 30 MG/ML SDV IVPUSH PRN (02:00)
--- NOTE | 2020-09-05 08:29 | OR ---
SURGEON: JOSE JOSHI DATE OF PROCEDURE: 09/04/2020 PREOPERATIVE DIAGNOSIS: 20-year-old, para 0, with severe pelvic pain secondary to ruptured ovarian cyst, cannot rule out ovarian torsion. POSTOPERATIVE DIAGNOSIS: 20-year-old, para 0, with severe pelvic pain secondary to ruptured ovarian cyst, cannot rule out ovarian torsion. PROCEDURE: Diagnostic laparoscopy with aspiration of peritoneal fluid. ESTIMATED BLOOD LOSS: 5 mL. ANESTHESIA: General. COMPLICATIONS: None. PATHOLOGY: None. NOTES AND FINDINGS: EUA showed normal-sized anteverted uterus. Laparoscopy showed pelvic cavity with minimal scant amount of serous fluid.20cc of serous fluid was suctioned . IUD string was seen BRIEF HISTORY: 20-year-old, para 0, who complained of sudden onset of pelvic pain during sex, which was getting worse. The patient was seen in the ER due to ultrasound finding of a ruptured ovarian cyst versus ovarian torsion, noting a high suspicion of ovarian torsion. The patient was informed that based on history, she was most likely to have a ruptured ovarian cyst, and based on the ovarian size, i do not suspect an ovarian torsion. However, the patient was given the option for continued pain management versus diagnostic laparoscopy. The patient declined conservative management. She wanted to pursue diagnostic laparoscopy. She was explained the risks, benefits, and alternatives. She decided to proceed with diagnostic laparoscopy. DESCRIPTION OF PROCEDURE: The patient was taken to the operating room where general anesthesia was performed without difficulty. She was prepared and draped in the dorsal lithotomy position with Raghavendra stirrups. The sponge stick was placed into the vagina to help with the elevation of the vagina. Attention was then placed on the abdomen. 0.25% Marcaine was put in the subumbilical fold and a 5 mm incision was made and the 5 mm trocar was placed with direct visualization. Entry was confirmed with low intraabdominal pressure. Pneumoperitoneum was achieved to 15 mmHg. The patient was placed in Trendelenburg position. The bowel was retracted away from the operative field. The left lower quadrant incision was made 2 fingerbreadths medial and superior to the anterior superior iliac spine. Marcaine was injected and an incision was made. The trocar was placed in with direct visualization and the adnexa and the uterus were inspected and the above-noted findings were noted. The peritoneal fluid was suctioned, about 20 mL was suctioned, it was serous in color, and after suctioning, the uterus and ovaries were well inspected. Pictures were obtained. The trocar was then removed. Pneumoperitoneum was released from the abdomen. The laparoscopic incision was closed with 3-0 Monocryl. The sponge stick was removed from the vagina. The patient tolerated the procedure well. All instrument and pad counts were correct x2. The patient tolerated the procedure well. MARIYA JARAMILLO /[id number] MTDD
[2020-09-08 18:07] LABS: C.TRACHOMATIS BY TMA Negative (Negative); N.GONORRHOEAE BY TMA Negative (Negative)
== END 2020-09-04 23:00 | disposition home or self-care (01) ==
LOC: MW.ED 13:39 → MW.SDS 18:16 → MW.ED 19:15 → MW.MS 19:18 → MW.SDS 19:18
PROVIDERS: ATTEND Obstetrics & Gynecology
DX: N83.209 Unspecified ovarian cyst, unspecified side (principal); Z79.899 Other long term (current) drug therapy; Z01.812 Encounter for preprocedural laboratory examination; Z20.822 Contact with and (suspected) exposure to COVID-19
CPT/HCPCS: 36415; 49322; 74018; 76856; 80053; 81001; 81025; 83690; 85025; 87480; 87491; 87510; 87591; 87635; 87660; 96374; 96375; 99285; A9270; J0330; J0696; J1100; J1885; J2250; J2405; J2704; J3010; J3490; 99283; U0002

== ENCOUNTER 2020-09-05 15:33 | Emergency (ER) | payer OTHER ==
[2020-09-05] MEDS ORDERED: Sodium Chloride 0.9% 2.5 ML Syringe FLUSH PRN (15:45)
[2020-09-05] MEDS ORDERED: Sodium Chloride 0.9% 10 ML Syringe FLUSH PRN (15:45)
[2020-09-05] MEDS ORDERED: Ondansetron 4 MG/2 ML SDV IVPUSH ONE (15:46)
[2020-09-05] MEDS ORDERED: HYDROmorphone 1 MG/ML Syringe IVPUSH ONE (15:46)
[2020-09-05] MEDS ORDERED: Sodium Chloride 0.9% 1,000 ML IV ONE (15:46)
--- NOTE | 2020-09-05 15:50 | EDM.PDOC ---
ED HPI GENERAL MEDICAL PROBLEM - General Chief Complaint: General Stated Complaint: IN A LOT OF PAIN Time Seen by Provider: 09/05/20 15:35 - History of Present Illness INITIAL COMMENTS - FREE TEXT/NARRATIVE: History of present illness: [] Was here with possible ovarian torsion yesterday with severe abdominal pain. She was taken to the OR and under direct visualization with laparoscopy your ovaries look good. The diagnosis on discharge was a ruptured ovarian cyst on the right side. Fluid in the cul-de-sac was suctioned out. The patient woke up this morning with severe pain again. Its gradually gotten worse during the d ay. She was able to eat and drink and does not have a fever. The patient has severe unrelenting pain and is worse when she moves, straightens, walks. Review of systems: As per history of present illness and below otherwise all systems reviewed and negative. Past medical history: As per history of present illness and as reviewed below otherwise noncontributory. Surgical history: As per history of present illness and as reviewed below otherwise noncontributory. Social history: No reported history of drug or alcohol abuse. Family history: As per history of present illness and as reviewed below otherwise noncontributory. Physical exam: Constitutional - well developed, well-nourished and in no acute distress HEENT - normocephalic, no evidence of trauma - external nose and mouth normal - no mass in neck and no JVD - mucosae moist EYES - full EOM, PERRL, no icterus - no evidence of inflammation, injection, or drainage Respiratory - no respiratory distress, equal bilateral expansion, lungs clear to auscultation and no abnormal lung sounds Cardiovascular - Regular Rhythm with S1 and S2 appreciated and no murmur, gallop or rub. GI -there is diffuse tenderness of the abdomen. Abdomen soft without distension or organomegaly - normal bowel sounds -guards abdomen diffusely. Musculoskeletal no gross deformity of long bones or joints - no tenderness, swelling or edema Neurologic - Alert and oriented times four - CN II-XII grossly intact - motor sensory and coordination symmetrically normal Psychiatric - appropriate mood and affect with normal thought content Hematologic - No petechiae or purpura - mucosa appropriate color and sclera not pale - normal nail bed color and refill Integument - no rash or evidence of trauma - normal turgor Diagnostics: [] Therapeutics: [] Impression: [] Plan: [] Definitive disposition and diagnosis as appropriate pending reevaluation and review of above. Lower abdomen Pain Score (Numeric/FACES): 9 - Related Data Allergies Allergy/AdvReac Type Severity Reaction Status Date / Time No Known Allergies Allergy Verified 09/04/20 14:05 Home Meds: Home Meds Acetaminophen/HYDROcodone [Hiram 325-10 MG] 1 tab PO Q6H PRN 3 Days #14 tablet 09/05/20 [Rx] Past Medical History - Past Health History Medical/Surgical History: Denies Medical/Surgical History Social & Family History - Family History Family Medical History: Unobtainable ED ROS GENERAL - Review of Systems Review Of Systems: Comprehensive ROS is negative, except as noted in HPI. ED EXAM, GENERAL - Physical Exam Exam: See Below Free Text/Narrative:: My physical exam is in the HPI Course - Vital Signs Text/Narrative:: 1004 hrs. the patient had felt better after the pain medicine which she says is now starting to wear off a bit. Ultrasound has been performed and reading is pending. Count is good and it does not look like it is likely she has a significant blood loss. Hemoglobin is good abdomen soft 1748 patient will be discharged in satisfactory condition. Patient does have diffuse tenderness but no focal tenderness. She not vomiting. Cautioned return if she has fever or vomiting and otherwise follow-up with GI plan and 3 days. Last Recorded V/S: Last Vital Signs Temp 36.9 C 09/05/20 15:44 Pulse 76 09/05/20 17:25 Resp 18 09/05/20 17:25 BP 115/65 09/05/20 17:25 Pulse Ox 96 09/05/20 17:25 - Orders/Labs/Meds Orders: Active Orders 24 hr Category Date Time Status Sodium Chloride 0.9% [Saline Flush] Med 09/05/20 15:45 Active 10 ml FLUSH ASDIRECTED PRN Sodium Chloride 0.9% [Saline Flush] Med 09/05/20 15:45 Active 2.5 ml FLUSH ASDIRECTED PRN Saline Lock Insert [OM.PC] Stat Oth 09/05/20 15:45 Ordered Medication Orders Sodium Chloride (Sodium Chloride 0.9% 10 Ml Syringe) 10 ml FLUSH ASDIRECTED PRN PRN Reason: Keep Vein Open Last Admin: 09/05/20 16:10 Dose: 10 ml Documented by: BREANNA Sodium Chloride (Sodium Chloride 0.9% 2.5 Ml Syringe) 2.5 ml FLUSH ASDIRECTED PRN PRN Reason: Keep Vein Open Last Admin: 09/05/20 16:10 Dose: 2.5 ml Documented by: BREANNA Labs: Laboratory Tests 09/05/20 Range/Units 16:00 WBC 13.63 H (4.0-11.0) K/uL RBC 4.61 (4.30-5.90) M/uL Hgb 14.3 (12.0-16.0) g/dL Hct 41.3 (36.0-46.0) % MCV 89.6 (80.0-98.0) fL MCH 31.0 (27.0-32.0) pg MCHC 34.6 (31.0-37.0) g/dL RDW Std Deviation 40.1 (28.0-62.0) fl RDW Coeff of Shalonda 12 (11.0-15.0) % Plt Count 300 (150-400) K/uL MPV 10.10 (7.40-12.00) fL Neut % (Auto) 75.3 (48.0-80.0) % Lymph % (Auto) 16.4 (16.0-40.0) % Wilkes % (Auto) 8.1 (0.0-15.0) % Eos % (Auto) 0.1 (0.0-7.0) % Baso % (Auto) 0.1 (0.0-1.5) % Neut # (Auto) 10.3 H (1.4-5.7) K/uL Lymph # (Auto) 2.2 (0.6-2.4) K/uL Wilkes # (Auto) 1.1 H (0.0-0.8) K/uL Eos # (Auto) 0.0 (0.0-0.7) K/uL Baso # (Auto) 0.0 (0.0-0.1) K/uL Nucleated RBC % 0.0 /100WBC Nucleated RBCs # 0 K/uL Meds: Medications Generic Name Dose Route Start Last Admin Trade Name Freq PRN Reason Stop Dose Admin Sodium Chloride 10 ml 09/05/20 15:45 09/05/20 16:10 Sodium Chloride 0.9% 10 Ml Syringe FLUSH 10 ml ASDIRECTED PRN Administration Keep Vein Open Sodium Chloride 2.5 ml 09/05/20 15:45 09/05/20 16:10 Sodium Chloride 0.9% 2.5 Ml Syringe FLUSH 2.5 ml ASDIRECTED PRN Administration Keep Vein Open Discontinued Medications Generic Name Dose Route Start Last Admin Trade Name Freq PRN Reason Stop Dose Admin Hydrocodone Bitart/Acetaminophen 1 tab 09/05/20 17:45 Acetaminophen/Hydrocodone 325-10 Mg Tab PO 09/05/20 17:46 ONETIME ONE Hydromorphone HCl 1 mg 09/05/20 15:46 09/05/20 16:04 Hydromorphone 1 Mg/Ml Syringe IVPUSH 09/05/20 15:47 1 mg ONETIME ONE Administration Sodium Chloride 1,000 mls @ 999 mls/hr 09/05/20 15:46 09/05/20 16:03 Normal Saline IV 09/05/20 16:46 999 mls/hr .BOLUS ONE Administration Ondansetron HCl 4 mg 09/05/20 15:46 09/05/20 16:03 Ondansetron 4 Mg/2 Ml Sdv IVPUSH 09/05/20 15:47 4 mg ONETIME ONE Administration Departure - Departure Time of Disposition: 17:48 Disposition: Home, Self-Care 01 Condition: Good Clinical Impression: Abdominal pain - Discharge Information Prescriptions: Acetaminophen/HYDROcodone [Hiram 325-10 MG] 1 tab PO Q6H PRN 3 Days #14 tablet PRN Reason: Pain (Severe 7-10) Instructions: Abdominal Pain, Adult, [id number] Referrals: Joy Madrid PA [Primary Care Provider] - Forms: ED Department Discharge Additional Instructions: [facility] [address] [place] [id number] [facility] [address] [place] [id number] The following information is given to patients seen in the emergency department who are being discharged to home. This information is to outline your options for follow-up care. We provide all patients seen in our emergency department with a follow-up referral. The need for follow-up, as well as the timing and circumstances, are variable depending upon the specifics of your emergency department visit. If you don't have a primary care physician on staff, we will provide you with a referral. We always advise you to contact your personal physician following an emergency department visit to inform them of the circumstance of the visit and for follow-up with them and/or the need for any referrals to a consulting specialist. The emergency department will also refer you to a specialist when appropriate. This referral assures that you have the opportunity for follow-up care with a specialist. All of these measure are taken in an effort to provide you with optimal care, which includes your follow-up. Under all circumstances we always encourage you to contact your private physician who remains a resource for coordinating your care. When calling for follow-up care, please make the office aware that this follow-up is from your recent emergency room visit. If for any reason you are refused follow-up, please contact the [facility] Emergency Department at and asked to speak to the emergency department charge nurse. Sepsis Event Note (ED) - Evaluation Sepsis Screening Result: Possible Sepsis Risk - Focused Exam Vital Signs: Vital Signs Temp Pulse Resp BP Pulse Ox 09/05/20 17:25 76 18 115/65 96 09/05/20 15:44 36.9 C 120 H 22 H 141/81 H 95 - My Orders Last 24 Hours: My Active Orders 09/05/20 15:45 Sodium Chloride 0.9% [Saline Flush] 10 ml FLUSH ASDIRECTED PRN Sodium Chloride 0.9% [Saline Flush] 2.5 ml FLUSH ASDIRECTED PRN Saline Lock Insert [OM.PC] Stat - Assessment/Plan Last 24 Hours: My Active Orders 09/05/20 15:45 Sodium Chloride 0.9% [Saline Flush] 10 ml FLUSH ASDIRECTED PRN Sodium Chloride 0.9% [Saline Flush] 2.5 ml FLUSH ASDIRECTED PRN Saline Lock Insert [OM.PC] Stat
--- NOTE | 2020-09-05 17:39 | US ---
INDICATION: Laparoscopy yesterday. Continued pain TECHNIQUE: A transvaginal pelvic ultrasound COMPARISON: 09/04/2020 FINDINGS: Uterus: 7.9 x 2.7 x 4.6 cm. Normal echotexture of the myometrium. No masses. Endometrium: 1-2 mm in thickness. An IUD again seen in the endometrium. Right ovary: 4.6 x 1.9 x 1.9 cm. A 3.3 x 1.0 cm complex right ovarian cyst, containing internal septation and few low-level echoes. Arterial right ovarian Doppler flow documented. Left ovary: Not visualized. Cul-de-sac: Small free fluid, apparently mildly complex. IMPRESSION: A 3.3 cm complex right ovarian cyst, likely an involuting hemorrhagic cyst. A 6 week follow-up examination can be obtained to document resolution. Right ovarian arterial Doppler flow documented. Nonvisualization of the left ovary. An IUD again seen within the endometrium. Small, mildly complex free fluid. Dictated by Baljinder Mcknight MD @ Sep 05 2020 5:30PM Signed by Dr. Baljinder Mcknight @ Sep 05 2020 5:38PM
[2020-09-05] MEDS ORDERED: Acetaminophen/HYDROcodone 325-10 MG Tab PO ONE (17:45)
== END 2020-09-05 17:57 | disposition home or self-care (01) ==
LOC: MW.ED 15:33
DX: R10.84 Generalized abdominal pain (principal)
CPT/HCPCS: 76857; 85025; 96374; 96375; 99284; A9270; J1170; J2405; J7030; 99283

== ENCOUNTER 2020-09-09 20:56 | Emergency (ER) | payer OTHER ==
[2020-09-09] MEDS ORDERED: Sodium Chloride 0.9% 10 ML Syringe FLUSH PRN (21:36)
[2020-09-09] MEDS ORDERED: Sodium Chloride 0.9% 1,000 ML IV ONE (21:36)
[2020-09-09] MEDS ORDERED: Sodium Chloride 0.9% 2.5 ML Syringe FLUSH PRN (21:36)
--- NOTE | 2020-09-09 21:36 | EDM.PDOC ---
ED HPI GENERAL MEDICAL PROBLEM - General Chief Complaint: Abdominal Pain Stated Complaint: RECENT SURGERY, OVARY PAIN Time Seen by Provider: 09/09/20 20:57 Source of Information: Reports: Patient History Limitations: Reports: No Limitations - History of Present Illness INITIAL COMMENTS - FREE TEXT/NARRATIVE: 20-year-old female past medical history recent laparoscopy for rule out ovarian torsion presents for abdominal pain. Patient was seen on 09/04/20 and had an ultrasound suspicious for right ovarian torsion. She was taken for diagnostic laparoscopy by [facility] and had a small right ovarian cyst with some free fluid but no evidence of ovarian torsion. Patient tolerated the procedure well. She did come back to the emergency department the next day for increasing pain and had labs as well as a repeat ultrasound that were unremarkable. She was sent home. She presents today for sudden onset periumbilical/suprapubic pain starting roughly 15 minutes prior to arrival. Associated with nausea but no vomiting. She is had normal bowel movements. No fevers. No cough. No dysuria, hematuria. No vaginal discharge. Lower Abdomen Pain Score (Numeric/FACES): 10 - Related Data Allergies Allergy/AdvReac Type Severity Reaction Status Date / Time prazosin Allergy Hives Verified 09/09/20 21:57 Home Meds: Home Meds Acetaminophen/HYDROcodone [[place] 325-10 MG] 1 tab PO Q6H PRN 3 Days #14 tablet 09/05/20 [Rx] Morphine 15 mg PO Q4H PRN #18 tab 09/09/20 [Rx] cloNIDine [Catapres] 0.1 mg PO DAILY 09/09/20 [History] traZODone 50 mg PO DAILY 09/09/20 [History] Past Medical History - Past Health History Medical/Surgical History: Denies Medical/Surgical History Psychiatric History: Reports: Anxiety, Depression - Infectious Disease History Infectious Disease History: Reports: None Social & Family History - Family History Family Medical History: Unobtainable - Caffeine Use Caffeine Use: Reports: None - Recreational Drug Use Recreational Drug Use: No ED ROS GENERAL - Review of Systems Review Of Systems: Comprehensive ROS is negative, except as noted in HPI. ED EXAM, GENERAL - Physical Exam Exam: See Below Exam Limited By: No Limitations General Appearance: Alert, WD/WN, Anxious Throat/Mouth: Normal Voice, No Airway Compromise Respiratory/Chest: No Respiratory Distress, Lungs Clear, Normal Breath Sounds, No Accessory Muscle Use Cardiovascular: Normal Peripheral Pulses, No Edema, Tachycardia GI/Abdominal: Soft, Other (diffuse TTP most evident in periumbilical abdomen and suprapubic area) Extremities: Normal Inspection Neurological: Alert Psychiatric: Normal Affect, Normal Mood Skin Exam: Warm, Dry, Intact, Normal Color Course - Vital Signs Last Recorded V/S: Last Vital Signs Temp 99 F 09/09/20 21:00 Pulse 118 H 09/09/20 21:00 Resp 22 H 09/09/20 21:00 BP 130/86 09/09/20 21:00 Pulse Ox 96 09/09/20 21:00 - Orders/Labs/Meds Orders: Active Orders 24 hr Category Date Time Status Sodium Chloride 0.9% [Saline Flush] Med 09/09/20 21:36 Active 10 ml FLUSH ASDIRECTED PRN Sodium Chloride 0.9% [Saline Flush] Med 09/09/20 21:36 Active 2.5 ml FLUSH ASDIRECTED PRN Saline Lock Insert [OM.PC] Stat Oth 09/09/20 21:36 Ordered Medication Orders Sodium Chloride (Sodium Chloride 0.9% 10 Ml Syringe) 10 ml FLUSH ASDIRECTED PRN PRN Reason: Keep Vein Open Last Admin: 09/09/20 21:49 Dose: 10 ml Documented by: SANDEEP Sodium Chloride (Sodium Chloride 0.9% 2.5 Ml Syringe) 2.5 ml FLUSH ASDIRECTED PRN PRN Reason: Keep Vein Open Last Admin: 09/09/20 21:49 Dose: 2.5 ml Documented by: SANDEEP Labs: Laboratory Tests 09/09/20 09/09/20 09/09/20 Range/Units 21:10 21:10 21:10 WBC 10.31 (4.0-11.0) K/uL RBC 5.19 (4.30-5.90) M/uL Hgb 16.2 H (12.0-16.0) g/dL Hct 45.8 (36.0-46.0) % MCV 88.2 (80.0-98.0) fL MCH 31.2 (27.0-32.0) pg MCHC 35.4 (31.0-37.0) g/dL RDW Std Deviation 38.5 (28.0-62.0) fl RDW Coeff of Shalonda 12 (11.0-15.0) % Plt Count 305 (150-400) K/uL MPV 10.10 (7.40-12.00) fL Neut % (Auto) 64.2 (48.0-80.0) % Lymph % (Auto) 27.4 (16.0-40.0) % [place] % (Auto) 7.7 (0.0-15.0) % Eos % (Auto) 0.5 (0.0-7.0) % Baso % (Auto) 0.2 (0.0-1.5) % Neut # (Auto) 6.6 H (1.4-5.7) K/uL Lymph # (Auto) 2.8 H (0.6-2.4) K/uL [place] # (Auto) 0.8 (0.0-0.8) K/uL Eos # (Auto) 0.1 (0.0-0.7) K/uL Baso # (Auto) 0.0 (0.0-0.1) K/uL Nucleated RBC % 0.0 /100WBC Nucleated RBCs # 0 K/uL Lactate 1.6 (0.20-2.00) mmol/L Sodium 138 (136-145) mmol/L Potassium 4.1 (3.5-5.1) mmol/L Chloride 103 (98-107) mmol/L Carbon Dioxide 24.1 (21.0-32.0) mmol/L BUN 8 (7.0-18.0) mg/dL Creatinine 0.9 (0.6-1.0) mg/dL Est Cr Clr Drug Dosing 98.91 mL/min Estimated GFR (MDRD) > 60.0 ml/min Glucose 100 (74-106) mg/dL Calcium 9.4 (8.5-10.1) mg/dL Total Bilirubin 0.5 (0.2-1.0) mg/dL AST 21 (15-37) IU/L ALT 29 (14-63) IU/L Alkaline Phosphatase 72 (46-116) U/L Total Protein 8.2 (6.4-8.2) g/dL Albumin 4.1 (3.4-5.0) g/dL Globulin 4.1 H (2.6-4.0) g/dL Albumin/Globulin Ratio 1.0 (0.9-1.6) Lipase 94 (73-393) U/L HCG, Qual (NEG) Urine Color Urine Appearance Urine pH (5.0-8.0) Ur Specific [place] (1.001-1.035) Urine Protein (NEGATIVE) mg/dL Urine Glucose (UA) (NEGATIVE) mg/dL Urine Ketones (NEGATIVE) mg/dL Urine Occult Blood (NEGATIVE) Urine Nitrite (NEGATIVE) Urine Bilirubin (NEGATIVE) Urine Urobilinogen (<2.0) EU/dL Ur Leukocyte Esterase (NEGATIVE) 09/09/20 09/09/20 Range/Units 21:10 22:56 WBC (4.0-11.0) K/uL RBC (4.30-5.90) M/uL Hgb (12.0-16.0) g/dL Hct (36.0-46.0) % MCV (80.0-98.0) fL MCH (27.0-32.0) pg MCHC (31.0-37.0) g/dL RDW Std Deviation (28.0-62.0) fl RDW Coeff of Shalonda (11.0-15.0) % Plt Count (150-400) K/uL MPV (7.40-12.00) fL Neut % (Auto) (48.0-80.0) % Lymph % (Auto) (16.0-40.0) % [place] % (Auto) (0.0-15.0) % Eos % (Auto) (0.0-7.0) % Baso % (Auto) (0.0-1.5) % Neut # (Auto) (1.4-5.7) K/uL Lymph # (Auto) (0.6-2.4) K/uL [place] # (Auto) (0.0-0.8) K/uL Eos # (Auto) (0.0-0.7) K/uL Baso # (Auto) (0.0-0.1) K/uL Nucleated RBC % /100WBC Nucleated RBCs # K/uL Lactate (0.20-2.00) mmol/L Sodium (136-145) mmol/L Potassium (3.5-5.1) mmol/L Chloride (98-107) mmol/L Carbon Dioxide (21.0-32.0) mmol/L BUN (7.0-18.0) mg/dL Creatinine (0.6-1.0) mg/dL Est Cr Clr Drug Dosing mL/min Estimated GFR (MDRD) ml/min Glucose (74-106) mg/dL Calcium (8.5-10.1) mg/dL Total Bilirubin (0.2-1.0) mg/dL AST (15-37) IU/L ALT (14-63) IU/L Alkaline Phosphatase (46-116) U/L Total Protein (6.4-8.2) g/dL Albumin (3.4-5.0) g/dL Globulin (2.6-4.0) g/dL Albumin/Globulin Ratio (0.9-1.6) Lipase (73-393) U/L HCG, Qual NEGATIVE (NEG) Urine Color YELLOW Urine Appearance CLEAR Urine pH 5.5 (5.0-8.0) Ur Specific [place] 1.015 (1.001-1.035) Urine Protein NEGATIVE (NEGATIVE) mg/dL Urine Glucose (UA) NEGATIVE (NEGATIVE) mg/dL Urine Ketones NEGATIVE (NEGATIVE) mg/dL Urine Occult Blood NEGATIVE (NEGATIVE) Urine Nitrite NEGATIVE (NEGATIVE) Urine Bilirubin NEGATIVE (NEGATIVE) Urine Urobilinogen 0.2 (<2.0) EU/dL Ur Leukocyte Esterase NEGATIVE (NEGATIVE) Meds: Medications Generic Name Dose Route Start Last Admin Trade Name Humbertoq PRN Reason Stop Dose Admin Sodium Chloride 10 ml 09/09/20 21:36 09/09/20 21:49 Sodium Chloride 0.9% 10 Ml Syringe FLUSH 10 ml ASDIRECTED PRN Administration Keep Vein Open Sodium Chloride 2.5 ml 09/09/20 21:36 09/09/20 21:49 Sodium Chloride 0.9% 2.5 Ml Syringe FLUSH 2.5 ml ASDIRECTED PRN Administration Keep Vein Open Discontinued Medications Generic Name Dose Route Start Last Admin Trade Name Harmeet PRN Reason Stop Dose Admin Hydromorphone HCl 1 mg 09/09/20 21:46 09/09/20 21:51 Hydromorphone 1 Mg/Ml Syringe IVPUSH 09/09/20 21:47 1 mg ONETIME ONE Administration Hydromorphone HCl 0.5 mg 09/09/20 22:51 09/09/20 23:13 Hydromorphone 1 Mg/Ml Syringe IVPUSH 09/09/20 22:52 0.5 mg ONETIME ONE Administration Sodium Chloride 1,000 mls @ 999 mls/hr 09/09/20 21:36 09/09/20 21:49 Normal Saline IV 09/09/20 22:36 999 mls/hr .Bolus ONE Administration Ondansetron HCl 4 mg 09/09/20 21:47 09/09/20 21:51 Ondansetron 4 Mg/2 Ml Sdv IVPUSH 09/09/20 21:48 4 mg ONETIME ONE Administration - Re-Assessments/Exams Free Text/Narrative Re-Assessment/Exam: 09/09/20 22:07 Patient is tachycardic. 09/09/20 23:54 Patient's pain feels much better. Ultrasound shows resolving hemorrhagic cyst. There is some free fluid. This is likely the patient's etiology of pain. Will discharge with analgesia. Patient does note that she got a prescription for Vicodin but says that it does not work very well for her so we will trial a di fferent pain medication. Advised her to take Motrin with this pain medicine. Advised her to follow-up with [facility]. Advised her to return to the emergency department pain becomes unbearable or she develops inability to tolerate p.o. or any new or concerning symptoms develop. Patient understands and agrees with plan. Departure - Departure Time of Disposition: 23:54 Disposition: Home, Self-Care 01 Condition: Good Clinical Impression: Ovarian cyst Qualifiers: Laterality: right Qualified Code(s): N83.201 - Unspecified ovarian cyst, right side - Discharge Information Prescriptions: Morphine 15 mg PO Q4H PRN #18 tab PRN Reason: Pain Instructions: Ovarian Cyst, [id number] Forms: ED Department Discharge Additional Instructions: Please follow-up with your [facility]. If your pain becomes intolerable or worsening, you develop vomiting and you are unable to keep anything down, you develop fevers, or any new or concerning symptom development you should come back to the emergency department for reassessment. The following information is given to patients seen in the emergency department who are being discharged to home. This information is to outline your options for follow-up care. We provide all patients seen in our emergency department with a follow-up referral. The need for follow-up, as well as the timing and circumstances, are variable depending upon the specifics of your emergency department visit. If you don't have a primary care physician on staff, we will provide you with a referral. We always advise you to contact your personal physician following an emergency department visit to inform them of the circumstance of the visit and for follow-up with them and/or the need for any referrals to a consulting specialist. The emergency department will also refer you to a specialist when appropriate. This referral assures that you have the opportunity for follow-up care with a specialist. All of these measure are taken in an effort to provide you with optimal care, which includes your follow-up. Under all circumstances we always encourage you to contact your private physician who remains a resource for coordinating your care. When calling for follow-up care, please make the office aware that this follow-up is from your recent emergency room visit. If for any reason you are refused follow-up, please contact the [facility] Emergency Department at and asked to speak to the emergency department charge nurse. Please follow up with your primary care physician. If you do not have a primary care physician, see below: [facility] [address] [place] [id number] [id number] [facility] [address] [place] [id number] Sepsis Event Note (ED) - Evaluation Sepsis Screening Result: Possible Sepsis Risk - Focused Exam Vital Signs: Vital Signs Temp Pulse Resp BP Pulse Ox 09/09/20 21:00 99 F 118 H 22 H 130/86 96 - My Orders Last 24 Hours: My Active Orders 09/09/20 21:36 Sodium Chloride 0.9% [Saline Flush] 10 ml FLUSH ASDIRECTED PRN Sodium Chloride 0.9% [Saline Flush] 2.5 ml FLUSH ASDIRECTED PRN Saline Lock Insert [OM.PC] Stat - Assessment/Plan Last 24 Hours: My Active Orders 09/09/20 21:36 Sodium Chloride 0.9% [Saline Flush] 10 ml FLUSH ASDIRECTED PRN Sodium Chloride 0.9% [Saline Flush] 2.5 ml FLUSH ASDIRECTED PRN Saline Lock Insert [OM.PC] Stat
[2020-09-09] MEDS ORDERED: HYDROmorphone 1 MG/ML Syringe IVPUSH ONE ×2 (21:46→22:51)
[2020-09-09] MEDS ORDERED: Ondansetron 4 MG/2 ML SDV IVPUSH ONE (21:47)
[2020-09-09 21:58] LABS: BLOOD UREA NITROGEN,BUN 8 mg/dL (7.0-18.0); CARBON DIOXIDE,CO2 24.1 mmol/L (21.0-32.0); CHLORIDE,CL 103 mmol/L (98-107); GLUCOSE RANDOM 100 mg/dL (74-106); LIPASE 94 U/L (73-393); POTASSIUM,K 4.1 mmol/L (3.5-5.1); SODIUM,NA 138 mmol/L (136-145)
--- NOTE | 2020-09-09 23:48 | US ---
INDICATION: Pain. Ovarian torsion TECHNIQUE: Multiple transvaginal sonographic images of the pelvis. COMPARISON: 09/05/2020 FINDINGS: Uterus: 7.4 x 4.7 x 3.3 cm. Normal echotexture of the myometrium. No masses. Endometrium: 4 mm in thickness. An IUD again seen within the endometrium. Tiny fluid in the endocervical canal. Right ovary: 4.7 x 4.6 x 1.7 cm. Near resolution of the previously seen complex right ovarian cyst with a small residual complex, probably hemorrhagic, follicle seen measuring 1.8 x 0.6 cm. Arterial and venous right ovarian Doppler flow documented. Left ovary: 3.4 x 3.0 x 1.7 cm. No ovarian or adnexal masses. Arterial and venous left ovarian Doppler flow documented. Cul-de-sac: Small free fluid. IMPRESSION: Near resolution of the previously seen hemorrhagic right ovarian cyst. Bilateral ovarian Doppler flow documented. Small free fluid. An IUD again seen. Dictated by Baljinder Mcknight MD @ Sep 09 2020 11:39PM Signed by Dr. Baljinder Mcknight @ Sep 09 2020 11:46PM
== END 2020-09-10 00:15 | disposition home or self-care (01) ==
LOC: MW.ED 20:56
DX: N83.201 Unspecified ovarian cyst, right side (principal); R00.0 Tachycardia, unspecified; Z88.8 Allergy status to other drugs, medicaments and biological substances
CPT/HCPCS: 36415; 76830; 80053; 81003; 83605; 83690; 84703; 85025; 96374; 96375; 96376; 99284; J1170; J2405; J7030; 99283

== ENCOUNTER 2020-11-16 00:28 | Emergency (ER) | payer OTHER ==
[2020-11-16] MEDS ORDERED: Sodium Chloride 0.9% 1,000 ML IV ONE (00:56)
[2020-11-16] MEDS ORDERED: HYDROmorphone 1 MG/ML Syringe IVPUSH ONE ×2 (00:56→03:07)
[2020-11-16] MEDS ORDERED: Ondansetron 4 MG/2 ML SDV IVPUSH ONE (00:56)
[2020-11-16] MEDS ORDERED: Sodium Chloride 0.9% 10 ML Syringe FLUSH PRN (00:56)
[2020-11-16] MEDS ORDERED: Sodium Chloride 0.9% 2.5 ML Syringe FLUSH PRN (00:56)
--- NOTE | 2020-11-16 00:58 | EDM.PDOC ---
ED HPI GENERAL MEDICAL PROBLEM - General Chief Complaint: Abdominal Pain Stated Complaint: RIGHT ABDOMINAL PAIN Time Seen by Provider: 11/16/20 00:34 Source of Information: Reports: Patient History Limitations: Reports: No Limitations - History of Present Illness INITIAL COMMENTS - FREE TEXT/NARRATIVE: 20-year-old female past medical history recent laparoscopy for rule out ovarian torsion 2 months ago presents for abdominal pain. Patient was seen in early August and had an ultrasound suspicious for right ovarian torsion, she was taken for diagnostic laparoscopy and was found to have a small right ovarian cyst with some free fluid but no evidence of torsion. She came back to the emergency department after that for increasing pain and was sent home with pain medication. She has been following up with her SENIOR BACKUP ADMINISTRATOR but notes that she has had continued on and off pain ever since the procedure in August. She is noted pain this time for roughly the last week. It is in her lower abdomen worse in the right side. Is associated with nausea but no vomiting. She has normal bowel movements. She denies any urinary symptoms, fevers, vaginal discharge. She has had multiple pelvic ultrasounds which are unremarkable. 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: Acetaminophen right abd Pain Score (Numeric/FACES): 8 - Related Data Allergies Allergy/AdvReac Type Severity Reaction Status Date / Time prazosin Allergy Hives Verified 09/09/20 21:57 Home Meds: Home Meds cloNIDine [Catapres] 0.1 mg PO DAILY 09/09/20 [History] traZODone 50 mg PO DAILY 09/09/20 [History] Past Medical History - Past Health History Medical/Surgical History: Denies Medical/Surgical History Other SENIOR BACKUP ADMINISTRATOR History: cysts on ovaries Psychiatric History: Reports: Anxiety, Depression - Infectious Disease History Infectious Disease History: Reports: None Social & Family History - Family History Family Medical History: Unobtainable - Caffeine Use Caffeine Use: Reports: None ED ROS GENERAL - Review of Systems Review Of Systems: Comprehensive ROS is negative, except as noted in HPI. ED EXAM, GENERAL - Physical Exam Exam: See Below Exam Limited By: No Limitations General Appearance: Alert, WD/WN, Other (uncomfortable appearing) Throat/Mouth: Normal Voice, No Airway Compromise Head: Atraumatic, Normocephalic Neck: Normal Inspection Respiratory/Chest: No Respiratory Distress, Lungs Clear, Normal Breath Sounds, No Accessory Muscle Use Cardiovascular: Normal Peripheral Pulses, Regular Rate, Rhythm GI/Abdominal: Soft, Other (b/l lower abdominal TTP R>L) Extremities: Normal Inspection Neurological: Alert Psychiatric: Normal Affect, Normal Mood Skin Exam: Warm, Dry, Intact, Normal Color Course - Vital Signs Last Recorded V/S: Last Vital Signs Temp 98.4 F 11/16/20 00:39 Pulse 86 11/16/20 00:39 Resp 18 11/16/20 00:39 BP 132/75 11/16/20 00:39 Pulse Ox 97 11/16/20 00:39 - Orders/Labs/Meds Orders: Active Orders 24 hr Category Date Time Status Sodium Chloride 0.9% [Saline Flush] Med 11/16/20 00:56 Active 10 ml FLUSH ASDIRECTED PRN Sodium Chloride 0.9% [Saline Flush] Med 11/16/20 00:56 Active 2.5 ml FLUSH ASDIRECTED PRN Saline Lock Insert [OM.PC] Stat Oth 11/16/20 00:56 Ordered Medication Orders Hydromorphone HCl (Hydromorphone 1 Mg/Ml Syringe) 1 mg IVPUSH ONETIME ONE Stop: 11/16/20 03:08 Sodium Chloride (Sodium Chloride 0.9% 10 Ml Syringe) 10 ml FLUSH ASDIRECTED PRN PRN Reason: Keep Vein Open Last Admin: 11/16/20 01:19 Dose: 10 ml Documented by: MOHINI Sodium Chloride (Sodium Chloride 0.9% 2.5 Ml Syringe) 2.5 ml FLUSH ASDIRECTED PRN PRN Reason: Keep Vein Open Last Admin: 11/16/20 01:19 Dose: 2.5 ml Documented by: MOHINI Labs: Laboratory Tests 11/16/20 11/16/20 11/16/20 Range/Units 01:24 01:24 01:24 WBC 9.52 (4.0-11.0) K/uL RBC 4.60 (4.30-5.90) M/uL Hgb 13.7 (12.0-16.0) g/dL Hct 40.7 (36.0-46.0) % MCV 88.5 (80.0-98.0) fL MCH 29.8 (27.0-32.0) pg MCHC 33.7 (31.0-37.0) g/dL RDW Std Deviation 37.8 (28.0-62.0) fl RDW Coeff of Shalonda 12 (11.0-15.0) % Plt Count 258 (150-400) K/uL MPV 10.30 (7.40-12.00) fL Neut % (Auto) 59.1 (48.0-80.0) % Lymph % (Auto) 31.4 (16.0-40.0) % Hopkins % (Auto) 7.4 (0.0-15.0) % Eos % (Auto) 1.9 (0.0-7.0) % Baso % (Auto) 0.2 (0.0-1.5) % Neut # (Auto) 5.6 (1.4-5.7) K/uL Lymph # (Auto) 3.0 H (0.6-2.4) K/uL Hopkins # (Auto) 0.7 (0.0-0.8) K/uL Eos # (Auto) 0.2 (0.0-0.7) K/uL Baso # (Auto) 0.0 (0.0-0.1) K/uL Sodium 141 (136-145) mmol/L Potassium 3.5 (3.5-5.1) mmol/L Chloride 104 (98-107) mmol/L Carbon Dioxide 26.0 (21.0-32.0) mmol/L BUN 7 (7.0-18.0) mg/dL Creatinine 0.8 (0.6-1.0) mg/dL Est Cr Clr Drug Dosing 111.27 mL/min Estimated GFR (MDRD) > 60.0 ml/min Glucose 100 (74-106) mg/dL Calcium 8.2 L (8.5-10.1) mg/dL Total Bilirubin 0.2 (0.2-1.0) mg/dL AST 25 (15-37) IU/L ALT 50 (14-63) IU/L Alkaline Phosphatase 79 (46-116) U/L Total Protein 7.4 (6.4-8.2) g/dL Albumin 3.7 (3.4-5.0) g/dL Globulin 3.7 (2.6-4.0) g/dL Albumin/Globulin Ratio 1.0 (0.9-1.6) HCG, Qual NEGATIVE (NEG) Urine Color Urine Appearance Urine pH (5.0-8.0) Ur Specific Aiken (1.001-1.035) Urine Protein (NEGATIVE) mg/dL Urine Glucose (UA) (NEGATIVE) mg/dL Urine Ketones (NEGATIVE) mg/dL Urine Occult Blood (NEGATIVE) Urine Nitrite (NEGATIVE) Urine Bilirubin (NEGATIVE) Urine Urobilinogen (<2.0) EU/dL Ur Leukocyte Esterase (NEGATIVE) 11/16/20 Range/Units 01:24 WBC (4.0-11.0) K/uL RBC (4.30-5.90) M/uL Hgb (12.0-16.0) g/dL Hct (36.0-46.0) % MCV (80.0-98.0) fL MCH (27.0-32.0) pg MCHC (31.0-37.0) g/dL RDW Std Deviation (28.0-62.0) fl RDW Coeff of Shalonda (11.0-15.0) % Plt Count (150-400) K/uL MPV (7.40-12.00) fL Neut % (Auto) (48.0-80.0) % Lymph % (Auto) (16.0-40.0) % Hopkins % (Auto) (0.0-15.0) % Eos % (Auto) (0.0-7.0) % Baso % (Auto) (0.0-1.5) % Neut # (Auto) (1.4-5.7) K/uL Lymph # (Auto) (0.6-2.4) K/uL Hopkins # (Auto) (0.0-0.8) K/uL Eos # (Auto) (0.0-0.7) K/uL Baso # (Auto) (0.0-0.1) K/uL Sodium (136-145) mmol/L Potassium (3.5-5.1) mmol/L Chloride (98-107) mmol/L Carbon Dioxide (21.0-32.0) mmol/L BUN (7.0-18.0) mg/dL Creatinine (0.6-1.0) mg/dL Est Cr Clr Drug Dosing mL/min Estimated GFR (MDRD) ml/min Glucose (74-106) mg/dL Calcium (8.5-10.1) mg/dL Total Bilirubin (0.2-1.0) mg/dL AST (15-37) IU/L ALT (14-63) IU/L Alkaline Phosphatase (46-116) U/L Total Protein (6.4-8.2) g/dL Albumin (3.4-5.0) g/dL Globulin (2.6-4.0) g/dL Albumin/Globulin Ratio (0.9-1.6) HCG, Qual (NEG) Urine Color YELLOW Urine Appearance CLEAR Urine pH 6.0 (5.0-8.0) Ur Specific Aiken <= 1.005 (1.001-1.035) Urine Protein NEGATIVE (NEGATIVE) mg/dL Urine Glucose (UA) NEGATIVE (NEGATIVE) mg/dL Urine Ketones NEGATIVE (NEGATIVE) mg/dL Urine Occult Blood NEGATIVE (NEGATIVE) Urine Nitrite NEGATIVE (NEGATIVE) Urine Bilirubin NEGATIVE (NEGATIVE) Urine Urobilinogen 0.2 (<2.0) EU/dL Ur Leukocyte Esterase NEGATIVE (NEGATIVE) Meds: Medications Generic Name Dose Route Start Last Admin Trade Name Freq PRN Reason Stop Dose Admin Hydromorphone HCl 1 mg 11/16/20 03:07 Hydromorphone 1 Mg/Ml Syringe IVPUSH 11/16/20 03:08 ONETIME ONE Sodium Chloride 10 ml 11/16/20 00:56 11/16/20 01:19 Sodium Chloride 0.9% 10 Ml Syringe FLUSH 10 ml ASDIRECTED PRN Administration Keep Vein Open Sodium Chloride 2.5 ml 11/16/20 00:56 11/16/20 01:19 Sodium Chloride 0.9% 2.5 Ml Syringe FLUSH 2.5 ml ASDIRECTED PRN Administration Keep Vein Open Discontinued Medications Generic Name Dose Route Start Last Admin Trade Name Freq PRN Reason Stop Dose Admin Hydromorphone HCl 1 mg 11/16/20 00:56 11/16/20 01:16 Hydromorphone 1 Mg/Ml Syringe IVPUSH 11/16/20 00:57 1 mg ONETIME ONE Administration Sodium Chloride 1,000 mls @ 999 mls/hr 11/16/20 00:56 11/16/20 01:15 Normal Saline IV 11/16/20 01:56 999 mls/hr .Bolus ONE Administration Ondansetron HCl 4 mg 05/23/21 00:56 11/16/20 01:15 Ondansetron 4 Mg/2 Ml Sdv IVPUSH 11/16/20 00:57 4 mg ONETIME ONE Administration - Re-Assessments/Exams Free Text/Narrative Re-Assessment/Exam: 11/16/20 01:01 We will get pelvic ultrasound to rule out ovarian torsion. Will treat pain. Will get labs. 11/16/20 02:59 Labs and ultrasonography are unremarkable. Patient's pain is improved. Will discharge with short course of analgesia. Will recommend SENIOR BACKUP ADMINISTRATOR follow-up for more definitive diagnosis. Departure - Departure Time of Disposition: 03:08 Disposition: Home, Self-Care 01 Condition: Good Clinical Impression: Pelvic pain - Discharge Information Instructions: Pelvic Pain, Female, [id number] Referrals: Joy Madrid PA [Primary Care Provider] - Forms: ED Department Discharge Additional Instructions: Your lab work and your pelvic ultrasound were unremarkable. I have provided a prescription for pain medication for the next few days. Unfortunately there is some diagnostic uncertainty and I am not sure why you are having continued pelvic pain. I would definitely follow-up with an SENIOR BACKUP ADMINISTRATOR for more comprehensive work-up. If your pain becomes intolerable, changes in quality, or any new or concerning symptoms develop then you are encouraged to return to the emergency department for assessment. The following information is given to patients seen in the emergency department who are being discharged to home. This information is to outline your options for follow-up care. We provide all patients seen in our emergency department with a follow-up referral. The need for follow-up, as well as the timing and circumstances, are variable depending upon the specifics of your emergency department visit. If you don't have a primary care physician on staff, we will provide you with a referral. We always advise you to contact your personal physician following an emergency department visit to inform them of the circumstance of the visit and for follow-up with them and/or the need for any referrals to a consulting specialist. The emergency department will also refer you to a specialist when appropriate. This referral assures that you have the opportunity for follow-up care with a specialist. All of these measure are taken in an effort to provide you with optimal care, which includes your follow-up. Under all circumstances we always encourage you to contact your private physician who remains a resource for coordinating your care. When calling for f ollow-up care, please make the office aware that this follow-up is from your recent emergency room visit. If for any reason you are refused follow-up, please contact the [facility] Emergency Department at and asked to speak to the emergency department charge nurse. Please follow up with your primary care physician. If you do not have a primary care physician, see below: [facility] [address] [place] [id number] [facility] [address] [place] [address] [facility] [address] [place] [id number] Local OBGYN: [facility] [address] [place] [id number] [facility] [address] [place] [id number] Sepsis Event Note (ED) - Evaluation Sepsis Screening Result: No Definite Risk - Focused Exam Vital Signs: Vital Signs Temp Pulse Resp BP Pulse Ox 11/16/20 00:39 98.4 F 86 18 132/75 97 - My Orders Last 24 Hours: My Active Orders 11/16/20 00:56 Sodium Chloride 0.9% [Saline Flush] 10 ml FLUSH ASDIRECTED PRN Sodium Chloride 0.9% [Saline Flush] 2.5 ml FLUSH ASDIRECTED PRN Saline Lock Insert [OM.PC] Stat - Assessment/Plan Last 24 Hours: My Active Orders 11/16/20 00:56 Sodium Chloride 0.9% [Saline Flush] 10 ml FLUSH ASDIRECTED PRN Sodium Chloride 0.9% [Saline Flush] 2.5 ml FLUSH ASDIRECTED PRN Saline Lock Insert [OM.PC] Stat
[2020-11-16 01:55] LABS: BLOOD UREA NITROGEN,BUN 7 mg/dL (7.0-18.0); CHLORIDE,CL 104 mmol/L (98-107); GLUCOSE RANDOM 100 mg/dL (74-106); POTASSIUM,K 3.5 mmol/L (3.5-5.1); SODIUM,NA 141 mmol/L (136-145)
--- NOTE | 2020-11-16 02:58 | US ---
INDICATION: Right-sided pelvic pain. FINDINGS: Transvaginal scanning. IUD appropriately positioned. Endometrial thickness at the margins of the ID 3 mm with well-defined junctional zone. No endometrial fluid. Myometrium has normal appearance. Uterine size is 7 x 3 x 4 cm. Benign-appearing right ovary with physiologic follicles. Ovary measures 3.4 x 1.8 x 4 cm. Normal color and spectral Doppler blood flow. Left ovary is 3 x 2 x 3 cm with physiologic follicles and normal color and spectral Doppler blood flow. IMPRESSION: Appropriately positioned IUD. Unremarkable appearance of the uterus and ovaries. Dictated by Mikel De Souza MD @ 11/16/2020 2:56:[address] Mikel De Souza @ Nov 16 2020 2:56AM
== END 2020-11-16 03:32 | disposition home or self-care (01) ==
LOC: MW.ED 00:28
DX: R10.2 Pelvic and perineal pain (principal); Z88.8 Allergy status to other drugs, medicaments and biological substances
CPT/HCPCS: 36415; 76857; 80053; 81003; 84703; 85025; 96374; 96375; 96376; 99284; J1170; J2405; J7030; 99283

== ENCOUNTER 2020-11-25 23:10 | Emergency (ER) | payer OTHER ==
[2020-11-26] MEDS ORDERED: Sodium Chloride 0.9% 10 ML Syringe FLUSH PRN (00:03)
[2020-11-26] MEDS ORDERED: Sodium Chloride 0.9% 2.5 ML Syringe FLUSH PRN (00:03)
[2020-11-26] MEDS ORDERED: Pantoprazole 80 MG in Sodium Chloride 0.9% 20 ML IVPUSH ONE (00:04)
[2020-11-26] MEDS ORDERED: Lactated Ringers 1,000 ML IV ONE (00:06)
[2020-11-26] MEDS ORDERED: Ondansetron 4 MG/2 ML SDV IVPUSH ONE (00:06)
--- NOTE | 2020-11-26 00:08 | EDM.PDOC ---
ED HPI GENERAL MEDICAL PROBLEM - General Chief Complaint: Gastrointestinal Problem Stated Complaint: POSSIBLE STOMACH ULCER, VOMITTING BLOOD Time Seen by Provider: 11/25/20 23:35 - History of Present Illness INITIAL COMMENTS - FREE TEXT/NARRATIVE: Patient is a 20-year-old female who is presenting with epigastric discomfort emesis and bloody stool. Patient has been having trouble with what was initially nonbloody nonbilious emesis associated with epigastric discomfort that waxes and wanes throughout the day and is a constant burning for the last week. Starting last night she started to have some dark red material associated with this emesis. She has some chest discomfort during the active emesis but not at any other time. She has had difficulty keeping anything down for the last day. No fevers or chills patient has been taking significant amounts of ibuprofen and other anti-inflammatories in order to control chronic ovarian related pain which has been particularly bad over the last 3 months. She drinks alcohol only occasionally. Has no other medical problems. Symptoms are right now moderate they worsen when laying on her back or her right side and there are without alleviating factors they are primarily in the left upper quadrant and epigastrium but do radiate towards the right upper quadrant when she lays on her back or side. 0120: Patient's labs are good. She now is complaining of more right lower quadrant abdominal pain that she says is different from her ovarian pain given the CT scan added. Vital signs remained stable at this time no emesis. lower abdominal Pain Score (Numeric/FACES): 4 - Related Data Allergies Allergy/AdvReac Type Severity Reaction Status Date / Time prazosin Allergy Hives Verified 11/25/20 23:41 Home Meds: Home Meds cloNIDine [Catapres] 0.1 mg PO DAILY 09/09/20 [History] traZODone 50 mg PO DAILY 09/09/20 [History] Brexpiprazole [Rexulti] 11/25/20 [History] Escitalopram [Lexapro] 11/25/20 [History] Hydrocodone/Acetaminophen [Vicodin Hp 10-300 mg Tablet] 1 each PO TID PRN 4 Days #12 tablet 11/26/20 [Rx] Omeprazole 20 mg PO BID #28 capsule. 11/26/20 [Rx] Sucralfate [Carafate] 1 gm PO TID #42 tablet 11/26/20 [Rx] Past Medical History - Past Health History Medical/Surgical History: Denies Medical/Surgical History HEENT History: Reports: None Cardiovascular History: Reports: None Respiratory History: Reports: None Gastrointestinal History: Reports: Hemorrhoids Genitourinary History: Reports: None Other FOREPART LASTER History: cysts on ovaries Musculoskeletal History: Reports: None Neurological History: Reports: None Psychiatric History: Reports: Anxiety, Depression Endocrine/Metabolic History: Reports: None Hematologic History: Reports: None Immunologic History: Reports: None Oncologic (Cancer) History: Reports: None Dermatologic History: Reports: None - Infectious Disease History Infectious Disease History: Reports: None - Past Surgical History Head Surgeries/Procedures: Reports: None Social & Family History - Family History Family Medical History: Unobtainable - Tobacco Use Tobacco Use Status *Q: Current Every Day Tobacco User Years of Tobacco use: 5 Packs/Tins Daily: 0.2 - Caffeine Use Caffeine Use: Reports: None - Recreational Drug Use Recreational Drug Use: No ED ROS GENERAL - Review of Systems Review Of Systems: See Below Free Text/Narrative/Comment: General: No fever. Skin: No rash. Eyes: No vision problems. ENT: No sore throat. Neck: No neck stiffness. Respiratory: No shortness of breath. Cardiac: No chest pain. Gastrointestinal: Per HPI Urinary: No dysuria. Musculoskeletal: No myalgias/arthralgias. Neurologic: No headache. ED EXAM, GENERAL - Physical Exam Exam: See Below Free Text/Narrative:: General Appearance: No acute distress, appears comfortable Skin: No rash HEENT: Normocephalic/atraumatic, sclera anicteric, mucous membranes moist Neck: Normal range of motion Chest and Lungs: Bilateral breath sounds, clear to auscultation Cardiovascular: Regular rate and rhythm, no murmur Abdomen: Soft, epigastric and bilateral upper quadrant tenderness without rebound or guarding Back: Normal Musculoskeletal: No edema or tenderness Neurologic: Awake, alert, no obvious deficits, moving all extremities Psychiatric: Appropriate, cooperative Course - Vital Signs Last Recorded V/S: Last Vital Signs Temp 98.1 F 11/25/20 23:34 Pulse 84 11/25/20 23:34 Resp 20 11/25/20 23:34 BP 136/83 11/25/20 23:34 Pulse Ox 96 11/25/20 23:34 - Orders/Labs/Meds Orders: Active Orders 24 hr Category Date Time Status Saline Lock Insert [OM.PC] Stat Oth 11/26/20 00:03 Ordered Labs: Laboratory Tests 11/25/20 11/25/20 11/26/20 Range/Units 23:42 23:42 00:46 WBC 9.73 (4.0-11.0) K/uL RBC 4.67 (4.30-5.90) M/uL Hgb 14.2 (12.0-16.0) g/dL Hct 41.6 (36.0-46.0) % MCV 89.1 (80.0-98.0) fL MCH 30.4 (27.0-32.0) pg MCHC 34.1 (31.0-37.0) g/dL RDW Std Deviation 38.8 (28.0-62.0) fl RDW Coeff of Shalonda 12 (11.0-15.0) % Plt Count 279 (150-400) K/uL MPV 10.10 (7.40-12.00) fL Neut % (Auto) 59.7 (48.0-80.0) % Lymph % (Auto) 31.6 (16.0-40.0) % Thayer % (Auto) 6.8 (0.0-15.0) % Eos % (Auto) 1.8 (0.0-7.0) % Baso % (Auto) 0.1 (0.0-1.5) % Neut # (Auto) 5.8 H (1.4-5.7) K/uL Lymph # (Auto) 3.1 H (0.6-2.4) K/uL Thayer # (Auto) 0.7 (0.0-0.8) K/uL Eos # (Auto) 0.2 (0.0-0.7) K/uL Baso # (Auto) 0.0 (0.0-0.1) K/uL Nucleated RBC % 0.0 /100WBC Nucleated RBCs # 0 K/uL Sodium 143 (136-145) mmol/L Potassium 3.8 (3.5-5.1) mmol/L Chloride 107 (98-107) mmol/L Carbon Dioxide 25.0 (21.0-32.0) mmol/L BUN 9 (7.0-18.0) mg/dL Creatinine 0.8 (0.6-1.0) mg/dL Est Cr Clr Drug Dosing 111.27 mL/min Estimated GFR (MDRD) > 60.0 ml/min Glucose 107 H (74-106) mg/dL Calcium 8.5 (8.5-10.1) mg/dL Total Bilirubin 0.3 (0.2-1.0) mg/dL AST 16 (15-37) IU/L ALT 39 (14-63) IU/L Alkaline Phosphatase 87 (46-116) U/L Total Protein 7.5 (6.4-8.2) g/dL Albumin 3.6 (3.4-5.0) g/dL Globulin 3.9 (2.6-4.0) g/dL Albumin/Globulin Ratio 0.9 (0.9-1.6) Lipase 140 (73-393) U/L Urine HCG, Qual NEGATIVE (NEGATIVE) Meds: Medications Discontinued Medications Generic Name Dose Route Start Last Admin Trade Name Freq PRN Reason Stop Dose Admin Al Hydroxide/Mg Hydroxide 15 0 ml 11/26/20 00:33 11/26/20 03:44 ml/ Lidocaine HCl 5 ml PO 11/26/20 00:34 20 each ONETIME ONE Administration Pantoprazole Sodium 80 mg/ 20 mls @ 420 mls/hr 11/26/20 00:04 11/26/20 00:34 Sodium Chloride IVPUSH 11/26/20 00:06 420 mls/hr ONETIME ONE Administration Lactated Ringer's 1,000 mls @ 999 mls/hr 11/26/20 00:06 11/26/20 00:42 Ringers, Lactated IV 11/26/20 01:06 999 mls/hr .BOLUS ONE Administration Sodium Chloride Confirm 11/26/20 00:40 11/26/20 00:43 Normal Saline Administered 11/26/20 00:41 Not Given Dose 20 mls @ as directed .ROUTE .STK-MED ONE Iopamidol 100 ml 11/26/20 01:23 Iopamidol 755 Mg/Ml 500 Ml Multipack Bottle IVPUSH 11/26/20 01:24 ONETIME STA Ondansetron HCl 4 mg 11/26/20 00:06 11/26/20 00:34 Ondansetron 4 Mg/2 Ml Sdv IVPUSH 11/26/20 00:07 4 mg ONETIME ONE Administration Sodium Chloride 10 ml 11/26/20 00:03 Sodium Chloride 0.9% 10 Ml Syringe FLUSH ASDIRECTED PRN Keep Vein Open Sodium Chloride 2.5 ml 11/26/20 00:03 Sodium Chloride 0.9% 2.5 Ml Syringe FLUSH ASDIRECTED PRN Keep Vein Open Departure - Departure Time of Disposition: 03:59 Disposition: Home, Self-Care 01 Condition: Good Clinical Impression: Gastritis - Discharge Information *PRESCRIPTION DRUG MONITORING PROGRAM REVIEWED*: Yes *COPY OF PRESCRIPTION DRUG MONITORING REPORT IN PATIENT KIRA: Not Applicable Prescriptions: Sucralfate [Carafate] 1 gm PO TID #42 tablet Omeprazole 20 mg PO BID #28 capsule. Hydrocodone/Acetaminophen [Vicodin Hp 10-300 mg Tablet] 1 each PO TID PRN 4 Days #12 tablet PRN Reason: Abdominal Pain Instructions: Gastritis, Adult, [id number] Referrals: Joy Madrid PA [Primary Care Provider] - Forms: ED Department Discharge Additional Instructions: Your symptoms are most likely due to to irritation of your stomach potentially a stomach ulcer. Today her vital signs your lab work and a CT scan were normal. For the next 2 weeks please take the omeprazole at least 30 to 45 minutes before breakfast and before dinner. Please take the Carafate on an empty stomach a few minutes before any major meal. It is important that any of your other medications are not taken within 30 minutes of taking the Carafate as the medication can inhibit absorption of other medicines. Please be sure to follow- up with your primary care doctor. If your symptoms do not improve you may need to see a dietetic aide or one of the general surgeons to have an endoscopy performed. If your symptoms worsen or you have any other symptoms that concern you please return to the ER The following information is given to patients seen in the emergency department who are being discharged to home. This information is to outline your options for follow-up care. We provide all patients seen in our emergency department with a follow-up referral. The need for follow-up, as well as the timing and circumstances, are variable depending upon the specifics of your emergency department visit. If you don't have a primary care physician on staff, we will provide you with a referral. We always advise you to contact your personal physician following an emergency department visit to inform them of the circumstance of the visit and for follow-up with them and/or the need for any referrals to a consulting specialist. The emergency department will also refer you to a specialist when appropriate. This referral assures that you have the opportunity for follow-up care with a specialist. All of these measure are taken in an effort to provide you with optimal care, which includes your follow-up. Under all circumstances we always encourage you to contact your private physician who remains a resource for coordinating your care. When calling for follow-up care, please make the office aware that this follow-up is from your recent emergency room visit. If for any reason you are refused follow-up, please contact the [facility] Emergency Department at and asked to speak to the emergency department charge nurse. Sepsis Event Note (ED) - Evaluation Sepsis Screening Result: No Definite Risk - Focused Exam Vital Signs: Vital Signs Temp Pulse Resp BP Pulse Ox 11/25/20 23:34 98.1 F 84 20 136/83 96 - My Orders Last 24 Hours: My Active Orders 11/26/20 00:03 Saline Lock Insert [OM.PC] Stat - Assessment/Plan Last 24 Hours: My Active Orders 11/26/20 00:03 Saline Lock Insert [OM.PC] Stat Assessment:: 20-year-old female presenting with signs and symptoms most consistent with gastritis versus peptic ulcer disease. Vital signs are stable she is nontoxic she has no signs of active hemorrhage. She denies any black or coffee-ground appearance to the emesis. And so significant GI bleed is felt less likely. Patient's abdomen is not peritoneal neck. Biliary pathology considered pancreatic pathology considered. If there are any abnormalities in relevant blood work then could consider abdominal imaging at that time. No lower abdominal symptoms that would suggest gynecologic pathology appendicitis or diverticulitis. Zofran PPI IV fluids have been ordered. If labs otherwise unremarkable could consider trial of GI cocktail. 0340: Pt's labs are normal. Pt c/o more RLQ pain and stated that this is different from her prior ovarian related pain. Given this CT was added. This is normal. given this negative evaluation gastritis vs PUD is felt most likely. Pt has had no episodes of melena or emesis and her VS remain normal. Will perform therapeutic trial for GI cocktail. 0400: Pt with some minimal improvement. Pt's VS remain good and no emesis in the ED. Strict return precautions discussed and understood. pt will f/u with PCP. Strict instructions to avoid NSAIDs were discussed and short oxycodone refill provided.
[2020-11-26 00:28] LABS: BLOOD UREA NITROGEN,BUN 9 mg/dL (7.0-18.0); CHLORIDE,CL 107 mmol/L (98-107); GLUCOSE RANDOM 107 mg/dL (74-106); LIPASE 140 U/L (73-393); POTASSIUM,K 3.8 mmol/L (3.5-5.1); SODIUM,NA 143 mmol/L (136-145)
[2020-11-26] MEDS ORDERED: Sodium Chloride 0.9% 20 ML ONE (00:40)
[2020-11-26] MEDS: Alum Hydrox/Mag Hydrox/Simeth 15 ML, Lidocaine 2% 5 ML PO ONE ×4 (00:43→03:44)
[2020-11-26] MEDS ORDERED: Iopamidol 755 MG/ML 500 ML Multipack Bottle IVPUSH STA (01:23)
--- NOTE | 2020-11-26 03:14 | CR ---
For Patients: As a result of the Century Cures Act, medical imaging exams and procedure reports are released immediately into your electronic medical record. You may view this report before your referring provider. If you have questions, please contact your health care provider. INDICATION: Vomiting x1 week. TECHNIQUE: Upright single PA view. COMPARISON: None. FINDINGS: Heart, mediastinum, and pulmonary vessels are within normal limits. Lungs are clear. No subdiaphragmatic free air identified. Osseous structures unremarkable. IMPRESSION: No acute abnormalities identified. Dictated by Dipesh Encarnacion MD @ 11/26/2020 3:13:[address] Dipesh Encarnacion @ Nov 26 2020 3:13AM
--- NOTE | 2020-11-26 03:28 | CT ---
For Patients: As a result of the Cures Act, medical imaging exams and procedure reports are released immediately into your electronic medical record. You may view this report before your referring provider. If you have questions, please contact your health care provider. INDICATION: Right lower quadrant pain TECHNIQUE: CT abdomen and pelvis acquired with 100 mL Isovue 370 IV contrast. COMPARISON: None FINDINGS: Lower chest: Unremarkable. Liver: Unremarkable. Spleen: Unremarkable. Pancreas: Unremarkable. Gallbladder and bile ducts: Contracted gallbladder. No radiopaque calculi. No biliary enlargement identified Kidneys: Unremarkable. Adrenal glands: Unremarkable. GI tract: Unremarkable. Appendix is normal. Vascular structures: Negative. No sign of aneurysm. Lymph nodes: Unremarkable. Miscellaneous: Unremarkable. No free air or significant free fluid. Pelvic Organs: IUD appropriately positioned in otherwise unremarkable uterus. Ovaries unremarkable. Bones: Unremarkable for age. IMPRESSION: 1. No acute abnormality identified. 2. Appendix is normal. No etiology for right upper quadrant pain is seen Please note that all CT scans at this facility use dose modulation, iterative reconstruction, and/or weight-based dosing when appropriate to reduce radiation dose to as low as reasonably achievable. Dictated by Dipesh Encarnacion MD @ 11/26/2020 3:28:[address] Dipesh Encarnacion @ Nov 26 2020 3:28AM
== END 2020-11-26 04:00 | disposition home or self-care (01) ==
LOC: MW.ED 23:10
DX: K29.70 Gastritis, unspecified, without bleeding (principal); Z72.0 Tobacco use; Z88.5 Allergy status to narcotic agent
CPT/HCPCS: 36415; 71045; 74177; 80053; 81025; 83690; 85025; 96374; 96375; 99284; A9270; C9113; J2405; J7120

== ENCOUNTER 2021-01-21 06:25 | Day surgery (SDC) | payer BC, OTHER ==
[~2021-01-21 06:25] MED LIST: Lactated Ringers 1,000 ML IV SCH
[2021-01-21] MEDS ORDERED: Propofol 200 MG/20 ML SDV ONE (07:21)
[2021-01-21] MEDS ORDERED: Lidocaine 2% 5 ML SDV ONE (07:21)
--- NOTE | 2021-01-21 07:23 | PCM.PREANE ---
Preanesthetic Assessment - Anesthesia/Transfusion/Family Hx Anesthesia History: Prior Anesthesia Without Reaction Transfusion History: No Prior Transfusion(s) - Review of Systems General: No Symptoms Pulmonary: No Symptoms Cardiovascular: No Symptoms Gastrointestinal: No Symptoms Neurological: No Symptoms Other: Reports: None - Physical Assessment NPO Status Date: 01/21/21 NPO Status Time: 00:00 Vital Signs: Last Vital Signs Temp 97.7 F 01/21/21 06:30 Pulse 70 01/21/21 06:30 Resp 16 01/21/21 06:30 BP 123/66 01/21/21 06:30 Pulse Ox 99 01/21/21 06:30 Height: 5 ft 8 in Weight: 193 lb ASA Class: 2 Mental Status: Alert & Oriented x3 Airway Class: Mallampati = 1 Dentition: Reports: Normal Dentition Thyro-Mental Finger Breadths: 3 Mouth Opening Finger Breadths: 3 ROM/Head Extension: Full Lungs: Clear to Auscultation, Normal Respiratory Effort Cardiovascular: Regular Rate, Regular Rhythm - Lab Values: Laboratory Last Values Urine HCG, Qual NEGATIVE (NEGATIVE) 01/21/21 06:30 - Allergies Allergies/Adverse Reactions: Allergies Allergy/AdvReac Type Severity Reaction Status Date / Time prazosin Allergy Hives Verified 01/16/21 12:49 - Acknowledgements Anesthesia Type Planned: General Anesthesia Pt an Appropriate Candidate for the Planned Anesthesia: Yes Alternatives and Risks of Anesthesia Discussed w Pt/Guardian: Yes Pt/Guardian Understands and Agrees with Anesthesia Plan: Yes PreAnesthesia Questionnaire - Past Health History Medical/Surgical History: Denies Medical/Surgical History HEENT History: Reports: None Cardiovascular History: Reports: None Respiratory History: Reports: None Gastrointestinal History: Reports: GERD, Hemorrhoids Other Gastrointestinal History: recent GERD and Epigastric pain Genitourinary History: Reports: None Other OB/BYN History: cysts on ovaries Musculoskeletal History: Reports: Fracture Other Musculoskeletal History: hx of fx toe Neurological History: Reports: Concussion Psychiatric History: Reports: ADHD, Anxiety, Depression Other Psychiatric History: panic attacks in the past- not recently Endocrine/Metabolic History: Reports: None Hematologic History: Reports: None Immunologic History: Reports: None Oncologic (Cancer) History: Reports: None Dermatologic History: Reports: None - Infectious Disease History Infectious Disease History: Reports: None - Past Surgical History Head Surgeries/Procedures: Reports: None HEENT Surgical History: Reports: None Cardiovascular Surgical History: Reports: None Respiratory Surgical History: Reports: None GI Surgical History: Reports: None Female Surgical History: Reports: Other (See Below) Other Female Surgeries/Procedures: Laparoscopic Fallopian tube "untwisting" Endocrine Surgical History: Reports: None Neurological Surgical History: Reports: None Musculoskeletal Surgical History: Reports: None Oncologic Surgical History: Reports: None - SUBSTANCE USE Tobacco Use Status *Q: Current Every Day Tobacco User Tobacco Use Within Last Twelve Months: Vaping Recreational Drug Use History: No - HOME MEDS Home Medications: Home Meds Brexpiprazole [Rexulti] 1 mg PO DAILY 11/25/20 [History] Escitalopram [Lexapro] 10 mg PO DAILY 11/25/20 [History] Dextroamphetamine/Amphetamine [Adderall 20 mg Tablet] 20 mg PO DAILY 01/16/21 [History] Omeprazole 20 mg PO DAILY 01/16/21 [History] QUEtiapine Fumarate [Seroquel Xr] 50 mg PO DAILY PRN 01/16/21 [History] levonorgestreL [Mirena] 1 each IUTERINE ONETIME 01/16/21 [History] - CURRENT (IN HOUSE) MEDS Current Meds: Current Medications Lactated Ringer's (Ringers, Lactated) 1,000 mls @ 125 mls/hr IV ASDIRECTED [facility] Last Admin: 01/21/21 07:00 Dose: 125 mls/hr Documented by:
--- NOTE | 2021-01-21 08:11 | PCM.OPNOTE ---
- General Post-Op/Procedure Note Date of Surgery/Procedure: 01/21/21 Operative Procedure(s): EGD with biopsies Findings: mild gastritis dictation number [id number] Pre Op Diagnosis: Epigastric pain. nausea and vomiting Post-Op Diagnosis: mild gastritis Primary Surgeon: Pedro Suarez Pathology: EGD biopsies Complications: None Condition: Good
--- NOTE | 2021-01-21 08:27 | PCM.POSTAN ---
POST ANESTHESIA ASSESSMENT - MENTAL STATUS Mental Status: Alert, Oriented - VITAL SIGNS Vital Signs: Last Vital Signs Temp 97.7 F 01/21/21 06:30 Pulse 82 01/21/21 08:20 Resp 19 01/21/21 08:20 BP 110/68 01/21/21 08:20 Pulse Ox 99 01/21/21 08:20 - RESPIRATORY Respiratory Status: Respiratory Rate WNL, Airway Patent, O2 Saturation Stable - CARDIOVASCULAR CV Status: Pulse Rate WNL, Blood Pressure Stable - GASTROINTESTINAL GI Status: No Symptoms - POST OP HYDRATION Hydration Status: Adequate & Stable
--- NOTE | 2021-01-21 08:27 | PCM48HPAN ---
Post Anesthesia Note - EVALUATION WITHIN 48HRS OF ANESTHETIC Vital Signs in Normal Range: Yes Patient Participated in Evaluation: Yes Respiratory Function Stable: Yes Airway Patent: Yes Cardiovascular Function Stable: Yes Hydration Status Stable: Yes Pain Control Satisfactory: Yes Nausea and Vomiting Control Satisfactory: Yes Mental Status Recovered: Yes Vital Signs: Last Vital Signs Temp 97.7 F 01/21/21 06:30 Pulse 82 01/21/21 08:20 Resp 19 01/21/21 08:20 BP 110/68 01/21/21 08:20 Pulse Ox 99 01/21/21 08:20
--- NOTE | 2021-01-22 10:46 | OR ---
SURGEON: JESSICA CASON MD DATE OF PROCEDURE: 01/21/2021 PREOPERATIVE DIAGNOSIS: Intermittent abdominal pain along with bloating and occasional nausea and vomiting. POSTOPERATIVE DIAGNOSIS: Mild gastritis. PROCEDURE PERFORMED: EGD with biopsy. ENDOSCOPIST: Jessica Cason MD ANESTHESIA: With Anesthesiology. EXTENT OF THE PROCEDURE: To at least the second part of the duodenum. LIMITATIONS: None. REASON FOR PROCEDURE: The patient is a pleasant 20-year-old female who says for the last couple months, she has gastric pain that radiates around her right side into her back. She says the pains usually always there, but she has flare-ups. Eating spicy foods seems aggravated. She has been treated for gastritis in the past, and ibuprofen and Carafate seems to help with that. The patient has not gotten her gallbladder ultrasound yet. PROCEDURE IN DETAIL: Physical exam was performed. The major risks and benefits associated with the procedure were explained to the patient in detail. The patient verbalized understanding and was in agreement with the same. The patient was then connected to the appropriate monitoring devices, and IV was started. EKG, pulse oximetry, blood pressure, and capnography were monitored throughout the entire procedure. Oxygen and sedation were provided by the anesthesiologist. Sedation was began. After adequate sedation was achieved, the upper endoscope was advanced under direct visualization without difficulty into the upper GI tract, and mucosa of the esophagus, GE junction, stomach, and at least the second part of the duodenum were all inspected. Duodenum appeared normal. Scope was brought back out. The patient has some mild gastritis mainly just in the antrum area with a pinpoint areas of old bleeding. This appears to be actually healing well. Scope was retroflexed in the stomach. No other lesions were seen. I did do biopsies of the antrum to check for H pylori. Scope was brought back to the GE junction. GE junction was approximately 37 cm from her incisors. GE junction appeared intact with a good squamocolumnar junction. The scope was brought back into the stomach. Stomach was desufflated. Scope was brought up to the esophagus. Esophagus appeared normal. Scope was completely removed and the procedure was terminated. ENDOSCOPIC DIAGNOSIS: Mild gastritis. RECOMMENDATIONS: The patient should continue her omeprazole and the patient should follow up in clinic to go over pathology. Also recommend the patient does do the ultrasound that was ordered. REMI JARAMILLO /[id number]
== END 2021-01-21 08:50 | disposition home or self-care (01) ==
LOC: MW.SDS 06:25
PROVIDERS: ATTEND Surgery
DX: K29.70 Gastritis, unspecified, without bleeding (principal); G47.00 Insomnia, unspecified; K21.9 Gastro-esophageal reflux disease without esophagitis; F17.200 Nicotine dependence, unspecified, uncomplicated; Z79.899 Other long term (current) drug therapy; Z88.8 Allergy status to other drugs, medicaments and biological substances; Z98.890 Other specified postprocedural states
CPT/HCPCS: 43239; 81025; J2704; J7120; 00731; 88305; 88342

== ENCOUNTER 2021-03-03 03:48 | Emergency (ER) | payer BC ==
--- NOTE | 2021-03-03 04:11 | EDM.PDOC ---
ED HPI GENERAL MEDICAL PROBLEM - General Chief Complaint: Respiratory Problem Stated Complaint: COVID POSITIVE; SHORTNESS OF BREATH Time Seen by Provider: 03/03/21 04:01 - History of Present Illness INITIAL COMMENTS - FREE TEXT/NARRATIVE: HISTORY AND PHYSICAL: History of present illness: This is a 20-year-old female with no significant past medical history of hypertension, diabetes, liver, lung, kidney problems who we recently diagnosed with coronavirus presents ER today secondary increased shortness of breath. Patient denies any nausea, vomiting, diarrhea, dysuria, frequency, urgency. Patient denies any chest pain or abdominal discomfort. Patient reports she was sleeping and started feeling like she was drowning. Patient has had a nonproductive cough. Patient has any calf tenderness or swelling. Patient is on any control pills. Patient has no history of DVT or PE. Patient has no hemoptysis. Review of systems: As per history of present illness and below otherwise all systems reviewed and negative. Past medical history: As per history of present illness and as reviewed below otherwise noncontributory. Surgical history: As per history of present illness and as reviewed below otherwise noncon tributory. Social history: No reported history of drug abuse. Family history: As per history of present illness and as reviewed below otherwise noncontributory. Physical exam: This patient was seen and evaluated during the 2019 SARS-CoV-2 novel coronavirus pandemic period. Community viral transmission is ongoing at time of this encounter and the emergency department is operating under pandemic response procedures. Constitutional: Patient is oriented to person, place, and time. Appears well- developed and well-nourished. No distress. HEENT: Moist mucous membranes Head: Normocephalic and atraumatic Eyes: Right eye exhibits no discharge. Left eye exhibits no discharge. No scleral icterus Neck: Normal range of motion. No tracheal deviation present. Cardiovascular: Normal rate and regular rhythm. No murmurs gallops or rubs. No split S2. No RV heave. Pulmonary: Effort normal, no respiratory distress. No wheezing rales or rhonchi. Abdominal: No distention Musculoskeletal: Normal range of motion. No calf tenderness. Negative Homans' sign. No edema. Neurologic: Alert and oriented to person, place and time. Skin: [place], warm and dry. Psychiatric: Normal mood and affect. Behavior is normal. Judgment and thought content normal. Nursing note and vital signs have been reviewed Diagnostics: Chest Xray: Normal cardiac silhouette No infiltrates or effusions identified. No PTX No evidence of acute bony fracture. As interpreted by ER MD: Augustin Reynolds: [] Assessment and plan: 20-year-old female who presents ER today secondary to shortness of breath with a recent diagnosis of coronavirus. Patient's pulse ox is 99% on room air. Patient have a chest x-ray obtained to rule out other pulmonary pathology that could be causing her to feel short of breath however currently her respiratory rate is normal, her lung exam is clear, her chest x-ray is normal. Patient be discharged home with precautions to return to the ED if she has increased or worsening shortness of breath. Reassessment at the time of disposition demonstrates that the patient is in no acute distress. The patient has remained stable throughout the entire ED visit and is without objective evidence for acute process requiring urgent intervention or hospitalization. The patient is stable for discharge, counseling is provided as documented above, discussed symptomatic treatment and specific conditions for return. I have spoken with the patient/caregiver and discussed todays findings, in addition to providing specific details for the plan of care. Questions are answered and there is agreement with the plan. Definitive disposition and diagnosis as appropriate pending reevaluation and review of above. - Related Data Allergies Allergy/AdvReac Type Severity Reaction Status Date / Time prazosin Allergy Hives Verified 03/03/21 04:05 Home Meds: Home Meds Brexpiprazole [Rexulti] 1 mg PO DAILY 11/25/20 [History] Escitalopram [Lexapro] 10 mg PO DAILY 11/25/20 [History] Dextroamphetamine/Amphetamine [Adderall 20 mg Tablet] 20 mg PO DAILY 01/16/21 [History] Omeprazole 20 mg PO DAILY 01/16/21 [History] QUEtiapine Fumarate [Seroquel Xr] 50 mg PO DAILY PRN 01/16/21 [History] levonorgestreL [Mirena] 1 each IUTERINE ONETIME 01/16/21 [History] Past Medical History - Past Health History Medical/Surgical History: Denies Medical/Surgical History HEENT History: Reports: None Cardiovascular History: Reports: None Respiratory History: Reports: None Gastrointestinal History: Reports: GERD, Hemorrhoids Other Gastrointestinal History: recent GERD and Epigastric pain Genitourinary History: Reports: None 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: cysts on ovaries Musculoskeletal History: Reports: Fracture Other Musculoskeletal History: hx of fx toe Neurological History: Reports: Concussion Psychiatric History: Reports: ADHD, Anxiety, Depression Other Psychiatric History: panic attacks in the past- not recently Endocrine/Metabolic History: Reports: None Hematologic History: Reports: None Immunologic History: Reports: None Oncologic (Cancer) History: Reports: None Dermatologic History: Reports: None - Infectious Disease History Infectious Disease History: Reports: None - Past Surgical History Head Surgeries/Procedures: Reports: None HEENT Surgical History: Reports: None Cardiovascular Surgical History: Reports: None Respiratory Surgical History: Reports: None GI Surgical History: Reports: None Female Surgical History: Reports: Other (See Below) Other Female Surgeries/Procedures: Laparoscopic Fallopian tube "untwisting" Endocrine Surgical History: Reports: None Neurological Surgical History: Reports: None Musculoskeletal Surgical History: Reports: None Oncologic Surgical History: Reports: None Social & Family History - Family History Family Medical History: Unobtainable - Caffeine Use Caffeine Use: Reports: None ED ROS GENERAL - Review of Systems Review Of Systems: See Below ED EXAM, GENERAL - Physical Exam Exam: See Below Course - Vital Signs Last Recorded V/S: Last Vital Signs Temp 96.9 F 03/03/21 04:03 Pulse 74 03/03/21 04:03 Resp 18 03/03/21 04:03 BP 110/73 03/03/21 04:03 Pulse Ox 97 03/03/21 04:03 - Orders/Labs/Meds Orders: Active Orders 24 hr Category Date Time Status Chest 2V [CR] Stat Exams 03/03/21 04:05 Ordered Departure - Departure Time of Disposition: 04:09 Disposition: Home, Self-Care 01 Condition: Good Clinical Impression: Pneumonia due to COVID-19 virus, Dyspnea - Discharge Information Instructions: Symptoms of Coronavirus - [facility] (08/18/2020) Referrals: Joy Madrid PA [Primary Care Provider] - Additional Instructions: Your seen and evaluated in the ER today secondary to having a diagnosis of coronavirus and developing shortness of breath. Your exam in the ER today is normal your oxygen level is outstanding. Your chest x-ray reveals no significant inflammation of your lungs. Please continue to monitor yourself at home and continue self quarantine. Please return to the ED if you have any new or concerning symptoms or worsening shortness of breath. 1. Your COVID-19 screening is positive. That means you do have the coronavirus and you are considered contagious. Your vital signs and oxygen saturation are well enough that you were able to monitor your symptoms at home. Continue to monitor for trouble breathing, new confusion or inability to arouse, bluish lips or face or any of the other symptoms we discussed -if this occurs please return to the emergency room. 2. Please self quarantine over the next 10 days. Inform any persons that you have been in contact with since you started becoming symptomatic that you have tested positive; they should be made aware and take the appropriate steps as needed. 3. You can take NyQuil during the evening to help get a restful night sleep. May alternate Tylenol and ibuprofen as needed for pain and fever management. 4. The [facility] will be calling you and following up with you. The [place] COVID 19 Hotline phone number , They are open Tuesday - Tuesday 7am - 7pm. Follow up with your primary care provider for re-evaluation and re-testing after the 10 day quarantine and discuss when you should be seen. The following information is given to patients seen in the emergency department who are being discharged to home. This information is to outline your options for follow-up care. We provide all patients seen in our emergency department with a follow-up referral. The need for follow-up, as well as the timing and circumstances, are variable depending upon the specifics of your emergency department visit. If you don't have a primary care physician on staff, we will provide you with a referral. We always advise you to contact your personal physician following an emergency department visit to inform them of the circumstance of the visit and for follow-up with them and/or the need for any referrals to a consulting specialist. The emergency department will also refer you to a specialist when appropriate. This referral assures that you have the opportunity for follow-up care with a specialist. All of these measure are taken in an effort to provide you with optimal care, which includes your follow-up. Under all circumstances we always encourage you to contact your private physician who remains a resource for coordinating your care. When calling for follow-up care, please make the office aware that this follow-up is from your recent emergency room visit. If for any reason you are refused follow-up, please contact the [facility] Emergency Department at and asked to speak to the emergency department charge nurse. [facility] - Primary Care [address] [place] [id number] [facility] [address] [place] [id number] Sepsis Event Note (ED) - Focused Exam Vital Signs: Vital Signs Temp Pulse Resp BP Pulse Ox 03/03/21 04:03 96.9 F 74 18 110/73 97 - My Orders Last 24 Hours: My Active Orders 03/03/21 04:05 Chest 2V [CR] Stat - Assessment/Plan Last 24 Hours: My Active Orders 03/03/21 04:05 Chest 2V [CR] Stat
--- NOTE | 2021-03-03 04:44 | CR ---
INDICATION: Shortness of breath COMPARISON: Chest single view from 11/26/2020 FINDINGS: PA and lateral views of the chest were obtained. The lungs remain clear. No focal or diffuse infiltrates are present. The heart remains normal in size. The mediastinum is normal in appearance. Again seen is mild scoliosis of the inferior thoracic spine convex towards the right. IMPRESSION: No active disease seen in the chest. Dictated by Jose Christianson MD @ 03/03/2021 4:43:04 AM (Electronically Signed)
== END 2021-03-03 04:30 | disposition home or self-care (01) ==
LOC: MW.ED 03:48
DX: U07.1 COVID-19 (principal); J12.82 Pneumonia due to coronavirus disease 2019; K21.9 Gastro-esophageal reflux disease without esophagitis; Z88.8 Allergy status to other drugs, medicaments and biological substances; Z79.899 Other long term (current) drug therapy
CPT/HCPCS: 71046; 71046-26; 99284-25

== ENCOUNTER 2021-12-09 08:20 | Day surgery (SDC) | payer BC ==
[~2021-12-09 08:20] MED LIST changes: +Midazolam 1 MG/ML 2 ML SDV ONE; +Propofol 200 MG/20 ML SDV ONE; +fentaNYL 100 MCG/2 ML SDV ONE
[2021-12-09] MEDS ORDERED: propofoL 50 ML ONE (09:53)
[2021-12-09] MEDS ORDERED: Lidocaine 2% 5 ML SDV ONE (10:55)
[2021-12-09] MEDS ORDERED: fentaNYL 100 MCG/2 ML SDV ONE (10:55)
== END 2021-12-09 12:30 | disposition home or self-care (01) ==
LOC: MW.SDS 08:20
PROVIDERS: ATTEND Surgery
DX: K92.1 Melena (principal); K29.50 Unspecified chronic gastritis without bleeding; G47.00 Insomnia, unspecified; F32.A Depression, unspecified; F41.0 Panic disorder [episodic paroxysmal anxiety]; Z88.8 Allergy status to other drugs, medicaments and biological substances
CPT/HCPCS: 43239; 45380; 81025; J2704; J3010; J7120; 00813; J2250

== ENCOUNTER 2022-02-09 10:41 | Emergency (ER) | payer BC ==
[2022-02-09] MEDS ORDERED: Ketorolac 30 MG/ML SDV IVPUSH ONE (11:58)
[2022-02-09 12:20] LABS: CARBON DIOXIDE,CO2 23.8 mmol/L (21.0-32.0); POTASSIUM,K 3.9 mmol/L (3.5-5.1)
== END 2022-02-09 13:22 | disposition home or self-care (01) ==
LOC: MW.ED 10:41
DX: U07.1 COVID-19 (principal); Z88.8 Allergy status to other drugs, medicaments and biological substances
CPT/HCPCS: 36415; 80053; 85025; 87635; 96374; 99284; J1885; 99283; U0002